=== PATIENT | female | born 1930 | race Caucasian/White ===

== ENCOUNTER 2018-03-12 11:07 | Observation (INO) | payer OTHER, MEDICARE ==
[2018-03-12] MEDS ORDERED: HYDROCODONE/APAP 5/325 MG TAB ONE (12:10)
--- NOTE | 2018-03-12 13:26 | RAD REPORT ---
EXAM DESCRIPTION: RAD - Lumbar Spine 3 Views - 03/12/2018 1:07 pm CLINICAL HISTORY: Back pain, numbness and tingling COMPARISON: None. FINDINGS: A three-view lumbar spine examination was performed. Minimal loss in height seen in both t he superior and inferior endplates of L1. Posterior wall height is preserved. No lytic or blastic com ponent. Remaining lumbar bodies are normal in height. There is a very slight retrolisthesis of L4 on L5. Significant L4-5 disc space narrowing present with degenerative gas in the disc space. There are facet degenerative changes from L3-4 through L5-S1. Disc space narrowing and degenerative change to t he endplates noted at L3-4. No other disc space narrowing. SI joint degenerative changes are present. No pars defects identified. IMPRESSION: Approximately 10-15% compression deformity of the L1 body involving both superior and in ferior endplates. Posterior wall height is preserved. No adequate comparison is available. Acute compression is not excluded. Remaining lumbar bodies are normal in height. Advanced degenerative disc and endplate change at L4-5 with moderate degenerative change at L3-4. Followup MR imaging could be performed to evaluate for active marrow signal in the L1 body.
[2018-03-12] MEDS ORDERED: ALBUTEROL 2.5 MG/3 ML NEB SOL ONE (14:40)
[2018-03-12 15:12] LABS: Urine Blood NEGATIVE (NEG); Urine Glucose NEGATIVE (NEG); Urine Protein 2+ (NEG); Urine Specific Gravity 1.015 (1.005-1.030); Urine pH 8.5 (5.0-7.0)
--- NOTE | 2018-03-12 16:11 | RAD REPORT ---
EXAM DESCRIPTION: Jade Single View03/12/2018 4:01 pm CLINICAL HISTORY: Chest pain/atrial flutter COMPARISON: December 2017 FINDINGS: Mild bilateral interstitial pulmonary opacities are suspected. A small left pleural effus ion may be present. The heart is borderline enlarged IMPRESSION: Mild bilateral interstitial opacities. I suspect most of this is chronic. There may be a mild superimposed interstitial pulmonary edema
--- NOTE | 2018-03-12 16:24 | EKG ---
Test Date: 2018-03-12 Test Time: 15:26:28 Crusher Operator: DAVEY MEASUREMENT RESULTS: Intervals: Rate: 57 WI: QRSD: 90 QT: 450 QTc: 438 [place]: P: 89 WI: QRS: 92 T: 100 INTERPRETIVE STATEMENTS: Atrial flutter with variable AV block Rightward axis ST & T wave abnormality, consider inferior ischemia Abnormal ECG Compared to ECG 12/08/2017 10:23:25 Right-axis deviation now present Possible ischemia now present Sinus rhythm no longer present First degree AV block no longer present ST (T wave) deviation still present Electronically Signed On 03-12-18 16:23:21 CDT by Tono Briggs
--- NOTE | 2018-03-12 16:56 | RAD REPORT ---
EXAM DESCRIPTION: MRI - Lumbar Spine Wo Con - 03/12/2018 4:26 pm CLINICAL HISTORY: Leg numbness and back pain COMPARISON: March 12, 2018 x-ray TECHNIQUE: Sagittal T1, T2 and STIR weighted sequences were obtained. Axial T1 and T2 sequences were obtained through the lumbar disc levels. FINDINGS: A Schmorl's node invagination into the inferior vertebral endplate of L1. Abnormal signal is present within the vertebral endplate. A small bulging disc minimally narrows the thecal sac. Small disc bulge is present at L2-3. Mild ligamentum flavum and facet hypertrophy is seen. Minimal na rrowing of the thecal sac is presence. Minimal narrowing of the neural foramina is noted. A moderate right lateral disc herniation is present at L3-4. The disc is thinned. The neural foramina is narrowed. Disc bulge, ligamentum flavum and facet hypertrophy is seen. The thecal sac measures 9 millimeters. Degenerative signal involves the vertebral endplates. L4-5 disc is thinned. Facet hypertrophy is present. Osteophytes are seen. Moderate narrowing of the n eural foramina bilaterally is present L5-S1 is unremarkable. 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
[2018-03-12 17:16] LABS: Absolute Lymphocytes (CBC) 1.2 K/uL (0.7-4.9); Absolute Monocytes 0.7 K/uL (0.1-1.3); Absolute Neutrophil 4.8 K/uL (1.8-8.0); Basophils % 0.6 % (0-1.3); Hematocrit 40.7 % (36.0-45.0); Lymphocytes % 17.1 % (15.3-44.8); MCH 28.2 pg (27.0-35.0); MCV 84.1 fL (80-100); MPV 9.2 fL (7.6-11.3); Monocytes % 9.6 % (3.3-12.3); RBC Red Blood Cell Count 4.84 M/uL (3.86-4.86)
[2018-03-12 17:20] LABS: Protime INR 0.92
--- NOTE | 2018-03-12 17:26 | ER ---
Nurse's Notes [facility] Name: Batsheva Godoy Age: 88 yrs Sex: Female : 1930 Arrival Date: 03/12/2018 Time: 11:12 Bed 26 Private MD: Diagnosis: Bradycardia, unspecified;Unspecified atrial flutter Presentation: 03/12 11:13 Presenting complaint: Patient states: i have a bad back that is hurting me for a week hj now and its getting worse for the last 3-4 days; the pain moves from the lower abd to my lower back; denies fever and chills; denies nausea and vomiting;. Transition of care: patient was not received from another setting of care. Onset of symptoms was March 12, 2018. Initial Sepsis Screen: Does the patient meet any 2 criteria? No. Patient's initial sepsis screen is negative. Does the patient have a suspected source of infection? No. Patient's initial sepsis screen is negative. Care prior to arrival: None. 11:13 Method Of Arrival: Ambulatory 11:13 Acuity: DEEDEE 3 hj Triage Assessment: 11:15 General: Appears in no apparent distress. uncomfortable, Behavior is calm, cooperative, hj appropriate for age. Pain:. Musculoskeletal: Circulation, motion, and sensation intact. Capillary refill < 3 seconds. Historical: - Allergies: 11:15 No Known Allergies; hj - Home Meds: 11:15 amlodipine oral [Active]; aspirin 81 mg Oral chew 1 tab once daily [Active]; Furosemide hj Oral [Active]; gabapentin Oral [Active]; Hydrochlorothiazide Oral [Active]; Metoprolol Tartrate Oral [Active]; Omeprazole Oral [Active]; - PMHx: 11:15 Hypertension; peripheral artery disease; hj - PSHx: 11:15 by pass surgery; hj - Immunization history:: Adult Immunizations up to date. - Social history:: Smoking status: Patient/guardian denies using tobacco. Screenin:21 Abuse screen: Denies threats or abuse. Denies injuries from another. Nutritional aj1 screening: No deficits noted. Tuberculosis screening: No symptoms or risk factors identified. 20:47 Fall Risk No fall in past 12 months (0 pts). Secondary diagnosis (15 points) impaired aj1 mobility, IV access (20 points). Ambulatory Aid- None/Bed Rest/Nurse Assist (0 pts). Gait- Normal/Bed Rest/Wheelchair (0 pts) Mental Status- Oriented to own ability (0 pts). Total Ardon Fall Scale indicates Low Risk Score (25-44 pts). Fall prevention measures have been instituted. As available Patient and Family Educated on Fall Prevention Program and strategies. Assessment: 11:30 Reassessment: Patient appears in no apparent distress at this time. No changes from aj1 previously documented assessment. Patient and/or family updated on plan of care and expected duration. Pain level reassessed. Patient is alert, oriented x 3, equal unlabored respirations, skin warm/dry/pink. 12:19 General: Appears in no apparent distress. uncomfortable, Behavior is calm, cooperative, aj1 appropriate for age. Pain: Complains of pain in low back area Pain radiates to left leg Pain currently is 10 out of 10 on a pain scale. Quality of pain is described as aching, Is continuous, Alleviated by medications, Aggravated by repositioning. Neuro: Level of Consciousness is awake, alert, obeys commands, Oriented to person, place, time, situation, Speech is normal, Facial symmetry appears normal. Cardiovascular: Patient's skin is warm and dry. Respiratory: Airway is patent Respiratory effort is even, unlabored, Respiratory pattern is regular, symmetrical. GI: No signs and/or symptoms were reported involving the gastrointestinal system. : No signs and/or symptoms were reported regarding the genitourinary system. EENT: No signs and/or symptoms were reported regarding the EENT system. Derm: No signs and/or symptoms reported regarding the dermatologic system. Skin is pink, warm \T\ dry. normal. Musculoskeletal: No signs and/or symptoms reported regarding the musculoskeletal system. Circulation, motion, and sensation intact. 13:07 Reassessment: Patient appears in no apparent distress at this time. No changes from aj1 previously documented assessment. Patient and/or family updated on plan of care and expected duration. Pain level reassessed. Patient is alert, oriented x 3, equal unlabored respirations, skin warm/dry/pink. 14:30 Reassessment: Patient 88% on 2L nc, notified DANA Segura. aj1 14:30 Respiratory: Airway is patent Respiratory effort is even, unlabored, Respiratory aj1 pattern is regular, symmetrical, Breath sounds are clear bilaterally. Denies shortness of breath. 14:44 Reassessment: Patient appears in no apparent distress at this time. No changes from aj1 previously documented assessment. Patient and/or family updated on plan of care and expected duration. Pain level reassessed. Patient is alert, oriented x 3, equal unlabored respirations, skin warm/dry/pink. 15:00 Reassessment: Patient's heart rate appears to drop into the 30's transiently on pulse aj1 ox. Patient placed on cardiac exercise physiologist. Heart rate appears irregular. Notified DANA Segura. 16:00 Reassessment: Patient and/or family updated on plan of care and expected duration. Pain aj1 level reassessed. Cardiovascular: Denies chest pain, diaphoresis, lightheadedness, nausea, palpitations, shortness of breath, syncope, vomiting, Heart tones S1 S2 present Patient's skin is warm and dry. Rhythm is irregular. 16:30 Reassessment: Patient and/or family updated on plan of care and expected duration. Pain aj1 level reassessed. General: Appears in no apparent distress. comfortable, Behavior is calm, cooperative, appropriate for age. Neuro: Level of Consciousness is awake, alert, obeys commands, Oriented to person, place, time, situation, Speech is normal, Facial symmetry appears normal. Cardiovascular: Heart tones S1 S2 present Patient's skin is warm and dry. Rhythm is irregular. Respiratory: Airway is patent Respiratory effort is even, unlabored, Respiratory pattern is regular, symmetrical, Breath sounds are clear bilaterally. GI: No signs and/or symptoms were reported involving the gastrointestinal system. : No signs and/or symptoms were reported regarding the genitourinary system. EENT: No signs and/or symptoms were reported regarding the EENT system. Derm: No signs and/or symptoms reported regarding the dermatologic system. Skin is pink, warm \T\ dry. normal. Musculoskeletal: No signs and/or symptoms reported regarding the musculoskeletal system. Circulation, motion, and sensation intact. 17:48 Reassessment: Patient appears in no apparent distress at this time. No changes from aj1 previously documented assessment. Patient and/or family updated on plan of care and expected duration. Pain level reassessed. Patient is alert, oriented x 3, equal unlabored respirations, skin warm/dry/pink. 18:28 Reassessment: Patient and/or family updated on plan of care and expected duration. Pain aj1 level reassessed. General: Appears in no apparent distress. comfortable, Behavior is calm, cooperative, appropriate for age. Neuro: Level of Consciousness is awake, alert, obeys commands, Oriented to person, place, time, situation, Speech is normal, Facial symmetry appears normal. Cardiovascular: Patient's skin is warm and dry. Rhythm is irregular. Respiratory: Airway is patent Respiratory effort is even, unlabored, Respiratory pattern is regular, symmetrical. GI: No signs and/or symptoms were reported involving the gastrointestinal system. : No signs and/or symptoms were reported regarding the genitourinary system. EENT: No signs and/or symptoms were reported regarding the EENT system. Derm: No signs and/or symptoms reported regarding the dermatologic system. Skin is pink, warm \T\ dry. normal. Musculoskeletal: No signs and/or symptoms reported regarding the musculoskeletal system. Circulation, motion, and sensation intact. 19:30 Reassessment: Patient appears in no apparent distress at this time. No changes from aj1 previously documented assessment. Patient and/or family updated on plan of care and expected duration. Pain level reassessed. Patient is alert, oriented x 3, equal unlabored respirations, skin warm/dry/pink. 20:41 Reassessment: Patient appears in no apparent distress at this time. No changes from aj1 previously documented assessment. Patient and/or family updated on plan of care and expected duration. Pain level reassessed. Patient is alert, oriented x 3, equal unlabored respirations, skin warm/dry/pink. Vital Signs: 11:16 BP 150 / 66; Pulse 65; Resp 18; Temp 97.9(O); Pulse Ox 95% on R/A; Weight 61.69 kg; hj Height 5 ft. 5 in. (165.10 cm); Pain 10/10; 12:19 BP 148 / 61; Pulse 59; Resp 18; Pulse Ox 95% on R/A; aj1 13:08 BP 152 / 69; Pulse 52; Resp 20; Pulse Ox 95% on 2 lpm NC; aj1 14:30 BP 147 / 68; Pulse 52; Resp 20; Pulse Ox 88% on 2 lpm NC; aj1 15:30 BP 154 / 71; Pulse 59; Resp 20; Pulse Ox 93% on 4 lpm NC; aj1 16:30 BP 153 / 67; Pulse 71; Resp 22; Pulse Ox 95% on 4 lpm NC; aj1 17:49 BP 150 / 61; Pulse 64; Resp 20; Pulse Ox 96% on 4 lpm NC; aj1 18:29 BP 161 / 66; Pulse 71; Resp 18; Pulse Ox 95% on 4 lpm NC; aj1 19:30 BP 150 / 57; Pulse 62; Resp 18; Pulse Ox 95% on 4 lpm NC; aj1 11:16 Body Mass Index 22.63 (61.69 kg, 165.10 cm) hj ED Course: 11:12 Patient arrived in ED. hj 11:14 Triage completed. hj 11:15 Arm band placed on left wrist. hj 11:23 Bill Awan PA is PHCP. cp 11:23 Rivera Vega MD is Attending Physician. cp 11:24 Chanel Vaca RN is Primary Nurse. aj1 12:21 Patient has correct armband on for positive identification. Bed in low position. Call aj1 light in reach. Side rails up X 1. 12:21 No provider procedures requiring assistance completed. aj1 12:49 XRAY Lumbar Spine (3 Views) In Process Unspecified. EDMS 13:12 X-ray completed. Patient tolerated procedure well. mh1 15:34 EKG done, by intraoperative neuro tech. reviewed by Bill CORTEZ. at1 16:01 XRAY Chest (1 view) In Process Unspecified. EDMS 16:05 Patient moved to MRI via wheelchair. ka 16:07 MRI Lumbar Spine wo Con In Process Unspecified. EDMS 16:57 MRI completed. Patient tolerated well. Patient moved back from MRI. em2 17:25 Pedro Guerrero DO is Hospitalizing Provider. cp 20:42 Patient admitted, IV remains in place. aj1 20:46 Report given to IRVING Chavez on 4th floor. aj1 Administered Medications: 11:50 CANCELLED (Physician Discretion): UltRAM 25 mg PO once cp 12:15 Drug: HYDROcodone-acetaminophen 5 mg-325 mg 1 tabs Route: PO; aj1 14:43 Follow up: Response: No adverse reaction aj1 14:43 Drug: Albuterol 2.5 mg Route: Inhalation; aj1 Outcome: 17:25 Decision to Hospitalize by Provider. cp 20:49 Admitted to Tele accompanied by tech, via wheelchair, with chart. aj1 20:49 Condition: stable 20:49 Discharge instructions given to patient, Instructed on the need for admit, Demonstrated understanding of instructions. 20:49 Patient left the ED. aj1 Signatures: Dispatcher [employer] EDChanel Valerio, RN RN aj1 Kathy Shelton mh1 Baldo Daniels em2 Judith barksdale, disc pad grinding machine feeder EKG Tat1 Victoriano Christianson RN RN Bill Awan PA PA cp Aguilera, Katelyn ka Corrections: (The following items were deleted from the chart) 11:17 11:16 Temp 97.9F Oral; 61.69 kg; Height 5 ft. 5 in.; BMI: 22.6; Pain 10/10; hj hj 11:18 11:13 Presenting complaint: Patient states: i have a bad back that is hurting me for a hj week now and its getting worse for the last 3-4 days; the pain moves to my back; denies fever and chills; denies nausea and vomiting; hj 11:18 11:16 Pulse 65bpm; Resp 18bpm; Pulse Ox 95% RA; Temp 97.9F Oral; 61.69 kg; Height 5 ft. hj 5 in.; BMI: 22.6; Pain 10/10; hj 17:20 14:30 BP 147 / 68; Pulse 22bpm; Resp 20bpm; Pulse Ox 88% 2 lpm Nasal Cannula; aj1 aj1
--- NOTE | 2018-03-12 17:26 | EDPHYS ---
Physician Documentation [facility] Name: Batsheva Godoy Age: 88 yrs Sex: Female : 1930 Arrival Date: 03/12/2018 Time: 11:12 Bed 26 Private MD: ED Physician Rivera Vega HPI: 03/12 11:51 This 88 yrs old Female presents to ER via Ambulatory with complaints of Back cp Pain, Hip Pain. 11:51 The patient presents with pain that is acute, with no known mechanism of injury. The cp symptoms are located in the low back. Onset: The symptoms/episode began/occurred 1-2 weeks ago. The pain radiates to the left leg. 11:51 The problem was sustained from unknown cause. cp 11:51 Associated signs and symptoms: Pertinent positives: shortness of breath, cp numbness/tingling of left foot, Pertinent negatives: abdominal pain, chest pain, fever, incontinence. Historical: - Allergies: 11:15 No Known Allergies; hj - Home Meds: 11:15 amlodipine oral [Active]; aspirin 81 mg Oral chew 1 tab once daily [Active]; Furosemide hj Oral [Active]; gabapentin Oral [Active]; Hydrochlorothiazide Oral [Active]; Metoprolol Tartrate Oral [Active]; Omeprazole Oral [Active]; - PMHx: 11:15 Hypertension; peripheral artery disease; hj - PSHx: 11:15 by pass surgery; hj - Immunization history:: Adult Immunizations up to date. - Social history:: Smoking status: Patient/guardian denies using tobacco. ROS: 12:00 Constitutional: Negative for body aches, chills, fever, poor PO intake. cp 12:00 Eyes: Negative for injury, pain, redness, and discharge. cp 12:00 ENT: Negative for drainage from ear(s), ear pain, sore throat, difficulty swallowing, difficulty handling secretions. 12:00 Cardiovascular: Negative for chest pain, edema. 12:00 Respiratory: Negative for cough, shortness of breath, wheezing. 12:00 Abdomen/GI: Negative for abdominal pain, nausea, vomiting, and diarrhea, black/tarry stool, rectal bleeding. 12:00 Back: Positive for pain at rest, pain with movement, of the lumbar area and left low back, Negative for injury or acute deformity. 12:00 : Negative for urinary symptoms, flank pain. 12:00 Skin: Negative for cellulitis, diaphoresis, rash. 12:00 Neuro: Positive for numbness, tingling, of the left foot, Negative for altered mental status, headache. 12:00 All other systems are negative. Exam: 12:07 Constitutional: The patient appears in no acute distress, alert, awake, cp non-diaphoretic, non-toxic, well developed, well nourished. 12:07 Head/Face: Normocephalic, atraumatic. cp 12:07 Eyes: Periorbital structures: appear normal, Pupils: equal, round, and reactive to light and accomodation, Extraocular movements: intact throughout, Conjunctiva: normal, no exudate, no injection, Sclera: no appreciated abnormality, Lids and lashes: appear normal, bilaterally. 12:07 ENT: External ear(s): are unremarkable, Ear canal(s): are normal, clear, TM's: bulging, is not appreciated, bilaterally, dullness, bilaterally, erythema, is not appreciated, bilaterally, Nose: is normal, Mouth: Lips: moist, Oral mucosa: pink and intact, moist, Posterior pharynx: is normal, airway is patent, no erythema, no exudate. 12:07 Neck: C-spine: vertebral tenderness, is not appreciated, crepitus, is not appreciated, ROM/movement: is normal, is supple, without pain, no range of motions limitations, no meningismus, no nuchal rigidity, Lymph nodes: no appreciated lymphadenopathy. 12:07 Chest/axilla: Inspection: normal, Palpation: is normal, no crepitus, no tenderness. 12:07 Cardiovascular: Rate: normal, Rhythm: regular, Pulses: Pulses are 2+ in right radial artery and left radial artery. Edema: is not appreciated, JVD: is not appreciated. 12:07 Respiratory: the patient does not display signs of respiratory distress, Respirations: normal, no use of accessory muscles, no retractions, no splinting, no tachypnea, labored breathing, is not present, Breath sounds: are clear throughout, no decreased breath sounds, no stridor, no wheezing. 12:07 Abdomen/GI: Inspection: abdomen appears normal, Bowel sounds: active, all quadrants, Palpation: abdomen is soft and non-tender, in all quadrants, rebound tenderness, is not appreciated, voluntary guarding, is not appreciated, involuntary guarding, is not appreciated. 12:07 Back: pain, that is moderate, of the lumbar area and left low back, ROM is painful, with all movement, Straight leg raises: of both lower extremities does not illicit pain. 12:07 Skin: cellulitis, is not appreciated, no rash present. 12:07 Neuro: Orientation: to person, place \T\ time. Mentation: lucid, able to follow commands, Cerebellar function: is grossly normal, Motor: moves all fours, strength is normal, Sensation: tingling, that is moderate, of the left foot. 15:33 ECG was reviewed by the Attending Physician. cp Vital Signs: 11:16 BP 150 / 66; Pulse 65; Resp 18; Temp 97.9(O); Pulse Ox 95% on R/A; Weight 61.69 kg; hj Height 5 ft. 5 in. (165.10 cm); Pain 10/10; 12:19 BP 148 / 61; Pulse 59; Resp 18; Pulse Ox 95% on R/A; aj1 13:08 BP 152 / 69; Pulse 52; Resp 20; Pulse Ox 95% on 2 lpm NC; aj1 14:30 BP 147 / 68; Pulse 52; Resp 20; Pulse Ox 88% on 2 lpm NC; aj1 15:30 BP 154 / 71; Pulse 59; Resp 20; Pulse Ox 93% on 4 lpm NC; aj1 16:30 BP 153 / 67; Pulse 71; Resp 22; Pulse Ox 95% on 4 lpm NC; aj1 17:49 BP 150 / 61; Pulse 64; Resp 20; Pulse Ox 96% on 4 lpm NC; aj1 18:29 BP 161 / 66; Pulse 71; Resp 18; Pulse Ox 95% on 4 lpm NC; aj1 19:30 BP 150 / 57; Pulse 62; Resp 18; Pulse Ox 95% on 4 lpm NC; aj1 11:16 Body Mass Index 22.63 (61.69 kg, 165.10 cm) MDM: 11:24 Patient medically screened. cp 16:54 Physician consultation: Tono Briggs MD was called at 16:54, was contacted at 16:54, cp regarding consult, patient's condition. 17:10 Data reviewed: vital signs, nurses notes, lab test result(s), EKG, radiologic studies, cp MRI, plain films. 17:10 Test interpretation: by ED physician or midlevel provider: ECG, plain radiologic cp studies. Counseling: I had a detailed discussion with the patient and/or guardian regarding: the historical points, exam findings, and any diagnostic results supporting the discharge/admit diagnosis, lab results, radiology results, the need for further work-up and treatment in the hospital. Physician consultation: Pedro Guerrero DO was contacted at 17:10, due to observed episodes of bradycardia. 03/12 11:48 Order name: Urine Microscopic Only cp 03/12 14:59 Order name: Urine Dipstick--Ancillary (enter results); Complete Time: 15:36 sg 03/12 15:39 Order name: Basic Metabolic Panel cp 03/12 15:39 Order name: BNP cp 03/12 15:39 Order name: CBC with Diff cp 03/12 15:39 Order name: Ckmb cp 03/12 11:50 Order name: XRAY Lumbar Spine (3 Views); Complete Time: 13:35 cp 03/12 13:36 Order name: MRI Lumbar Spine wo Con; Complete Time: 17:05 cp 03/12 15:39 Order name: CPK cp 03/12 15:39 Order name: LFT's cp 03/12 15:39 Order name: Magnesium cp 03/12 15:39 Order name: PT-INR cp 03/12 15:39 Order name: Ptt, Activated cp 03/12 15:39 Order name: Troponin (emerg Dept Use Only) cp 03/12 11:48 Order name: Urine Dipstick-Ancillary (obtain specimen); Complete Time: 17:45 cp 03/12 15:02 Order name: EKG; Complete Time: 15:02 cp 03/12 15:02 Order name: EKG - Nurse/Tech; Complete Time: 15:32 cp 03/12 15:39 Order name: XRAY Chest (1 view); Complete Time: 17:05 cp 03/12 15:39 Order name: Cardiac monitoring; Complete Time: 16:10 cp 03/12 15:39 Order name: IV Saline Lock; Complete Time: 17:50 cp 03/12 15:39 Order name: Labs collected and sent; Complete Time: 16:11 cp 03/12 15:39 Order name: O2 Per Protocol; Complete Time: 16:11 cp 03/12 15:39 Order name: O2 Sat Monitoring; Complete Time: 16:11 03/12 17:13 Order name: Echo w/ Doppler eb EC:33 Rate is 57 beats/min. Rhythm is irregularly irregular. QRS interval is normal. QT cp interval is normal. Interpreted by me. Reviewed by me. Administered Medications: 11:50 CANCELLED (Physician Discretion): UltRAM 25 mg PO once cp 12:15 Drug: HYDROcodone-acetaminophen 5 mg-325 mg 1 tabs Route: PO; aj 14:43 Follow up: Response: No adverse reaction aj 14:43 Drug: Albuterol 2.5 mg Route: Inhalation; aj1 Disposition: 03/12/18 17:25 Hospitalization ordered by Pedro Guerrero for Inpatient Admission. Preliminary diagnosis are Bradycardia, unspecified, Unspecified atrial flutter. - Bed requested for Telemetry/MedSurg (Inpatient). - Status is Inpatient Admission. aj1 - Condition is Stable. - Problem is new. - Symptoms have improved. UTI on Admission? No Addendum: 03/20/2018 19:59 Co-signature as Attending Physician, Rivera Vega MD I agree with the assessment and k dr plan of care. PA/HVAC JOURNEYMAN's history reviewed, patient interviewed, and examined. Signatures: Dispatcher [employer] EDChanel Valerio RN RN aj1 Rivera Vega MD MD [facility] Victoriano Christianson RN RN Bill Awan PA PA Mindy Franklin Corrections: (The following items were deleted from the chart) 03/12 11:50 11:50 UltRAM 25 mg PO once ordered. cp cp 17:37 17:25 Hospitalization Ordered by Pedro Guerrero DO for Inpatient Admission. Preliminary cp diagnosis is Bradycardia, unspecified. Bed requested for Telemetry/MedSurg (Inpatient). Status is Inpatient Admission. Condition is Stable. Problem is new. Symptoms have improved. UTI on Admission? No. cp 17:42 17:37 03/12/2018 17:25 Hospitalization Ordered by Pedro Guerrero DO for Inpatient eb Admission. Preliminary diagnosis is Bradycardia, unspecified; Unspecified atrial flutter. Bed requested for Telemetry/MedSurg (Inpatient). Status is Inpatient Admission. Condition is Stable. Problem is new. Symptoms have improved. UTI on Admission? No. cp 18:03/11 12:00 Constitutional: Negative for body aches, chills, fever, poor PO intake, cp cp 03/12 18:03/11 12:00 Eyes: Negative for injury, pain, redness, and discharge, cp cp 03/12 18:03/11 12:00 ENT: Negative for drainage from ear(s), ear pain, sore throat, difficulty cp swallowing, difficulty handling secretions, cp 03/12 18:03/11 12:00 Cardiovascular: Negative for chest pain, edema, palpitations, cp cp 03/12 18:03/11 12:00 Respiratory: Positive for shortness of breath, Negative for cough, cp wheezing, cp 03/12 18:03/11 12:00 Abdomen/GI: Negative for abdominal pain, nausea, vomiting, and diarrhea, cp black/tarry stool, rectal bleeding, cp 03/12 18:03/11 12:00 Back: Positive for pain at rest, of the lumbar area and left low back, cp cp 03/12 18:03/11 12:00 MS/extremity: Positive for pain, paresthesias, of the left leg, cp cp 03/12 18:03/11 12:00 Skin: Negative for cellulitis, rash, cp cp 03/12 18:03/11 12:00 Neuro: Negative for altered mental status, headache, weakness, cp cp 03/12 18:03/11 12:00 All other systems are negative, cp cp 03/12 18:37 17:42 03/12/2018 17:25 Hospitalization Ordered by Pedro Guerrero DO for Inpatient eb Admission. Preliminary diagnosis is Bradycardia, unspecified; Unspecified atrial flutter. Bed requested for Telemetry/MedSurg (Inpatient). Status is Inpatient Admission. Condition is Stable. Problem is new. Symptoms have improved. UTI on Admission? No. eb 20:49 18:37 03/12/2018 17:25 Hospitalization Ordered by Pedro Guerrero DO for Inpatient aj1 Admission. Preliminary diagnosis is Bradycardia, unspecified; Unspecified atrial flutter. Bed requested for Telemetry/MedSurg (Inpatient). Status is Inpatient Admission. Condition is Stable. Problem is new. Symptoms have improved. UTI on Admission? No. eb
[2018-03-12 17:31] LABS: Potassium 3.5 mEq/L (3.6-5.0)
[2018-03-12 17:37] LABS: Albumin 4.6 g/dL (3.2-5.5); Bilirubin Direct 0.2 mg/dL (0-0.2); Bilirubin Total 1.1 mg/dL (0.3-1.2); Protein, Total 7.2 g/dL (6.0-8.3)
[2018-03-12] MEDS ORDERED: HYDROCODONE/APAP 5/325 MG TAB PO PRN (17:50)
[2018-03-12] MEDS ORDERED: ACETAMINOPHEN 500 MG TAB PO PRN (18:02)
[2018-03-12] MEDS ORDERED: ONDANSETRON 4 MG/2 ML VIAL IV PRN (18:02)
[2018-03-12] MEDS ORDERED: TRAMADOL HCL 50 MG TAB PO PRN (18:02)
[2018-03-12] MEDS ORDERED: HYDROCODONE/APAP 7.5/325 MG TAB PO PRN (18:02)
--- NOTE | 2018-03-12 18:13 | P.HP ---
Certification for Inpatient Patient admitted to: Observation With expected LOS: <2 Midnights Patient will require the following post-hospital care: None Practitioner: I am a practitioner with admitting privileges, knowledge of patient current condition, hospital course, and medical plan of care. Services: Services provided to patient in accordance with Admission requirements found in Title 42 Section 412.3 of the Code of Federal Regulations Patient History Date of Service: 03/12/18 Primary Care Provider: Dr. Botello; Cardiology-Dr. Briggs Reason for admission: Back pain, lower extremity edema History of Present Illness: 88-year-old female presented emergency room with back pain and lower extremity edema. Back pain has been present for several weeks. She rates the pain about a 10/10. Pain is worse today. It is mainly to her lower lumbar region. Patient also has noticed increasing swelling to the lower extremity. Patient had reported some fatigue. No significant chest pain or shortness of breath noted. Patient with history of CHF, hypertension, PVD. In the ER the patient was evaluated. Initial CBC was unremarkable. Sodium 138 , potassium 3.5, troponin unremarkable. BNP slightly elevated. Chest x-ray showed mild pulmonary edema. EKG showed atrial flutter with a rate of about 57. Rate would go was low at has 22-30. Patient now with a rate of 72. MRI of the lumbar spine shows acute Schmorls node in to the foot able end-plate of L1 with surrounding edema, moderate right lateral disc herniation L3-L4. Spondylosis L4 -L5 resulting in moderate bilateral foraminal stenosis. Due to the findings the patient was admitted for observation. ER was able to contact cardiology. Cardiology recommends to hold metoprolol at this time. Patient started on Lovenox. Patient has no history of atrial flutter. Allergies No Known Allergies Allergy (Unverified 02/05/16 23:28) Home medications list reviewed: Yes Home Medications: Aspirin Chewable [Aspirin Chewable*] 81 mg PO DAILY 02/06/16 Clopidogrel Bisulfate [Plavix*] 75 mg PO DAILY 02/06/16 Gabapentin [Neurontin*] 300 mg PO BID 02/06/16 Hydrochlorothiazide 25 mg PO DAILY 02/06/16 Travoprost [Travatan Z] 1 drop EACH EYE BEDTIME 01/07/17 Metoprolol Succinate [Toprol Xl*] 50 mg PO TID 12/08/17 Fluticasone/Salmeterol [Advair 250-50 Diskus] 1 each IH BID #1 blst.w.dev Furosemide [Lasix] 20 mg PO DAILY #30 tab 12/11/17 Potassium Chloride 10 meq PO DAILY #30 tablet.er 12/11/17 Prednisone [Deltasone*] 10 mg PO BID #14 tab 12/11/17 - Past Medical/Surgical History Diabetic: No -: HTN -: PAD -: Glaucoma -: Macular degeneration -: CHF, diastolic dysfunction -: CAD -: Tonsillectomy -: Lower extremity arterial bypass Psychosocial/ Personal History: She is - Family History Family History: Reviewed- Non-Contributory - Family History Mother Notes: Congestive heart failure Father -: Lung disease Brother -: Heart disease Sister -: Cancer - Social History Smoking Status: Never smoker Alcohol use: No CD- Drugs: No Caffeine use: Yes Place of Residence: Home Review of Systems General: Weakness, As per HPI Eyes: Unremarkable ENT: Unremarkable Respiratory: Shortness of Breath, As per HPI Cardiovascular: Light Headedness, As per HPI Gastrointestinal: Unremarkable Genitourinary: Unremarkable Musculoskeletal: Back Pain, As per HPI Integumentary: Unremarkable Neurological: Weakness, As per HPI Lymphatics: Unremarkable Physical Examination - Physical Exam General: Alert, In no apparent distress, Oriented x3, Cooperative HEENT: Atraumatic, Normocephalic, PERRLA, Mucous membr. moist/pink Neck: Supple Respiratory: Crackles/rales (Mild crackles to the bases) Cardiovascular: Irregular heart rate/rhythm (Atrial flutter rate around 70) Gastrointestinal: Normal bowel sounds, Non-distended, No ascites, No tenderness , No masses, No rebound Musculoskeletal: No erythema, No tenderness, No warmth Integumentary: Tenderness/swelling (Mild edema to the left lower extremity.) Neurological: Normal speech, Normal strength at 5/5 x4 extr, Normal tone, Normal affect Lymphatics: No axilla or inguinal lymphadenopathy - Studies Laboratory Data (last 24 hrs) 03/12/18 16:55: PT 10.8, INR 0.92, APTT 28.4 03/12/18 16:55: WBC 7.0, Hgb 13.6, Hct 40.7, Plt Count 187 03/12/18 16:55: B-Natriuretic Peptide 646 H 03/12/18 16:55: Sodium 138, Potassium 3.5 L, BUN 19, Creatinine 0.76, Glucose 100, Magnesium 2.0, Total Bilirubin 1.1, AST 29, ALT 24, Alkaline Phosphatase 74 Assessment and Plan - Problems (Diagnosis) (1) Back pain Current Visit: Yes Status: Acute Plan: MRI findings reviewed. Will provide medication. Will have physical therapy assess ambulation. Patient may require pain management as an outpatient. Qualifiers: Back pain location: low back pain Chronicity: acute Back pain laterality : bilateral Sciatica presence: without sciatica Qualified Code(s): M54.5 - Low back pain (2) Lumbar disc herniation Current Visit: Yes Status: Acute Plan: L3-L4 disc herniation noted. Will continue with pain control. Will have physical therapy assess ambulation. (3) Foraminal stenosis of lumbar region Current Visit: Yes Status: Acute Plan: L4-L5 lumbar region. Will continue with above plan of care. (4) Schmorl's nodes of lumbar region Current Visit: Yes Status: Acute Plan: L1 region noted, will continue with pain control. Patient may require pain management as an outpatient. (5) CHF (congestive heart failure) Onset Date: 12/09/17 Current Visit: No Status: Acute Plan: Mild CHF noted. Will provide Lasix IV. Will continue with a fluid restriction at 1500 cc per day. Qualifiers: Heart failure type: diastolic Heart failure chronicity: acute on chronic Qualified Code(s): I50.33 - Acute on chronic diastolic (congestive) heart failure (6) HTN (hypertension) Onset Date: 12/09/17 Current Visit: No Status: Chronic Plan: Will hold her blood pressure [id number] as requested by Cardiology due to bradycardia Qualifiers: Hypertension type: essential hypertension (7) Bradycardia Current Visit: Yes Status: Acute Plan: Will hold beta-santa therapy. Will monitor blood pressure. (8) Atrial flutter Current Visit: Yes Status: Acute Plan: Will continue with Lovenox. Will hold medication at this time. Cardiology consulted and is aware of the patient. Await further recommendation Discharge Plan: Home Plan to discharge in: 48 Hours - Advance Directives Does patient have a Living Will: No Does patient have a Durable POA for Healthcare: No - Code Status/Comfort Care Code Status Assessed: Yes Time Spent Managing Pts Care (In Minutes): 55
[2018-03-12 21:25] VITALS: BMI 24.0
[2018-03-12] MEDS: ENOXAPARIN 60 MG/0.6 ML SQ SCH (22:28)
[2018-03-13 00:08] LABS: CKMB Creatine Kinase MB 2.4 ng/ml (0.3-4.0)
[2018-03-13 04:45] VITALS: O2SAT 93
[2018-03-13 05:04] LABS: Absolute Monocytes 0.7 K/uL (0.1-1.3); Absolute Neutrophil 4.4 K/uL (1.8-8.0); Basophils % 0.8 % (0-1.3); Eosinophils % 5.2 % (0-4.4); Hematocrit 38.2 % (36.0-45.0); Lymphocytes % 15.5 % (15.3-44.8); MCH 28.1 pg (27.0-35.0); MCV 85.3 fL (80-100); MPV 9.2 fL (7.6-11.3); Monocytes % 11.4 % (3.3-12.3); RBC Red Blood Cell Count 4.47 M/uL (3.86-4.86)
[2018-03-13 05:28] LABS: Magnesium 2.2 mg/dL (1.8-2.5); Potassium 3.9 mEq/L (3.6-5.0)
[2018-03-13] MEDS ORDERED: PANTOPRAZOLE 40MG TABLET PO SCH (06:30)
[2018-03-13] MEDS ORDERED: POTASSIUM 25 MEQ EFFERV TAB PO ONE (07:00)
[2018-03-13 08:21] LABS: CKMB Creatine Kinase MB 1.8 ng/ml (0.3-4.0)
[2018-03-13] MEDS ORDERED: FUROSEMIDE 20 MG/ 2ML VIAL IV SCH (09:00)
[2018-03-13] MEDS: ENOXAPARIN 60 MG/0.6 ML SQ SCH (09:11)
[2018-03-13 10:07] LABS: Urine Appearance CLEAR; Urine Bilirubin NEGATIVE (NEG); Urine Blood NEGATIVE (NEG); Urine Color YELLOW; Urine Glucose NEGATIVE (NEG); Urine Protein 1+ (NEG); Urine Specific Gravity 1.015 (1.005-1.030); Urine Urobilinogen 0.2 mg/dL (0.2-1.0)
[2018-03-13 10:11] LABS: Urine Microscopic Reflex ORDER UMIC
[2018-03-13 10:23] LABS: Urine Bacteria NONE SEEN /HPF (<20); Urine Culture Reflex Order NOT NEEDED; Urine RBC NONE SEEN /HPF (NONE SEEN)
--- NOTE | 2018-03-13 11:44 | PN ---
Date of Progress Note: 03/13/2018 Subjective: The patient is seen and examined, chart reviewed, and case discussed with RN. The patient does report pain in her back. No further chest pain or shortness of breath. Review of Systems: Negative except as above. Medications: Reviewed. Physical Examination: Vital Signs: Temperature 98.1, heart rate 58, blood pressure 162/74, respirations 16, O2 94% on 3 L via nasal cannula. General: Awake, alert, oriented x3, in some mild distress due to pain. Elderly female. CV: S1, S2, irregular. No murmurs. Peripheral pulses weak bilaterally. Respiratory: Moving air well bilaterally. No wheezing. No stridor. Gastrointestinal: Abdomen is soft, nontender, nondistended. Positive bowel sounds. Back: Mild tenderness to palpation in the lumbar spine. Extremities: No clubbing, cyanosis, edema. Neurologic: Nonfocal. Laboratory Data: Sodium 139, potassium 3.9, chloride 105, CO2 29, BUN 27, creatinine 0.95, glucose 85, calcium 9.3, magnesium 2.2. Troponin less than 0.03 x3. Cholesterol of 252, LDL 171, HDL 66, triglycerides 73. WBC 6.5, H and H 12.6 and 38.2, platelets 185. Assessment And Plan: An 88-year-old female with: 1. Acute back pain. MRI reviewed. The patient will need physical therapy and continue with pain management. 2. Lumbar disk herniation at L3-L4. Continue pain medications. 3. Foraminal stenosis of lumbar region, L4-L5. PT evaluation. The patient instructed to watch for symptoms including numbness, tingling, weakness of the legs, loss of bowel or bladder control. 4. Schmorl nodes of lumbar region, L1 region. We will continue with pain control. 5. Congestive heart failure, acute on chronic diastolic dysfunction. We will continue with diuresis. Monitor I's and O's, fluid restriction. 6. Essential hypertension. We will hold beta-santa due to bradycardia. 7. Bradycardia. We will hold beta-blockers. The patient does take beta- blockers through her eyedrops for her glaucoma. 8. Atrial fibrillation and atrial flutter. We will continue with Lovenox. We will follow with Cardiology recommendations. 9. Glaucoma, on beta-santa drops. 10. Gastrointestinal and deep venous thrombosis prophylaxis addressed. SA/MODL Voice ID: [id number] Report ID: [id number] MTDShannan
[2018-03-13 12:16] VITALS: TEMP 98.3
[2018-03-13 13:51] VITALS: BP 160/70
--- NOTE | 2018-03-13 15:59 | CON ---
The patient admitted by Dr. Gloria on 03/12/2018. Reason For Consultation: Bradycardia and atrial flutter. History Of Present Illness: This is an 88-year-old white woman. She is very well known to me from p revious office visits and admissions. She does not really have coronary artery disease. She has had atrial fibrillation and flutter in the past. She has a history of hypertension, peripheral vascular disease. She has had a femoral-popliteal before I believe on the right leg and documented left SFA disease. The patient does not passed out, she fell. Workup in the emergency room showed a compressi on fracture in the vertebral column. The patient was having a lot of pain yesterday and she was note d to be bradycardic in the upper 20s to 30s in atrial flutter. The patient has a beta santa and No rvasc this morning. She is running in the 70s. She is asymptomatic from a cardiovascular standpoint . Even when her heart rate was in the 30s. She denied PND, orthopnea, pedal edema, palpitation, or syncope. Denied any chest pain, shortness of breath, nausea, vomiting, or diaphoresis. Workup so fa r, her chest x-ray showed chronic interstitial fibrosis. Echocardiogram showed mitral regurgitation that is moderate, eccentric, and chronic. Ejection fraction is normal. EKG today shows sinus rhythm with first-degree AV block. Past Medical History: As stated above. Allergies: NONE. Review of Systems: Negative. Social History: Negative. Family History: Negative. Medications: At home include aspirin, Plavix, Norvasc, metoprolol, potassium, Lasix, and Neurontin. Physical Examination: General: The patient is very alert and oriented, very intelligent, requesting to go home. No cardia c issues. Still has some back pain. Physical therapy apparently has been ordered. Vital Signs: Stable. She was in sinus rhythm, first-degree AV block, rate of 78. HEENT: Negative. Neck: Supple. No bruit. Chest: Clear. Cardiac: Revealed a regular rhythm and rate without murmur. No gallops or rubs. Abdomen: Benign. Extremities: Revealed no clubbing, cyanosis, or edema. Diagnostic Data: As stated earlier. Impression And Plan: 1.Paroxysmal atrial fibrillation and flutter with a low heart rate may have been secondary to vagal reaction from the pain and the combination with beta-blockers and Norvasc. 2.Peripheral vascular disease, status post right femoral-popliteal that is stable. 3.Hypertension. 4.Neuropathy. I would personally be very conservative with the patient and I would taper off the be ta-santa. Continue the Norvasc. She can go home and get a 24-hour Holter on her as an outpatient to see if it detecting any more bradycardia with that magnitude. I would personally feel comfortable with her going home and have an outpatient physical therapy. No further cardiac workup at this in tLuis ESPINOSA/ASAD Voice ID: [id number] Report ID: [id number]
[2018-03-13] MEDS ORDERED: TRAVOPROST 0.004% 2.5ML OPTH EACH EYE SCH (21:00)
[2018-03-13] MEDS ORDERED: GABAPENTIN 300 MG CAP PO SCH (21:00)
[2018-03-14] MEDS ORDERED: CLOPIDOGREL 75 MG TABLET PO SCH (09:00)
[2018-03-14] MEDS ORDERED: ASPIRIN 81 MG CHEWABLE TABLET PO SCH (09:00)
[2018-03-14] MEDS ORDERED: hydroCHLOROthiazide 25 MG TAB PO SCH (09:00)
--- NOTE | 2018-03-14 16:18 | P.DS ---
Admission Date: 03/12/18 Discharge Date: 03/13/18 Primary Care Provider: Dr. Botello; Cardiology-Dr. Briggs Disposition: DC HOME/HOME HEALTH CARE Discharge Condition: FAIR Reason for Admission: Back pain, lower extremity edema Consultations: Cardiology Dr. Briggs - Problems (1) Atrial flutter Status: Acute (2) Back pain Status: Acute Qualifiers: Back pain location: low back pain Chronicity: acute Back pain laterality : bilateral Sciatica presence: without sciatica Qualified Code(s): M54.5 - Low back pain (3) Bradycardia Status: Acute (4) CHF (congestive heart failure) Onset Date: 12/09/17 Status: Acute Qualifiers: Heart failure type: diastolic Heart failure chronicity: acute on chronic Qualified Code(s): I50.33 - Acute on chronic diastolic (congestive) heart failure (5) Foraminal stenosis of lumbar region Status: Acute (6) Lumbar disc herniation Status: Acute (7) Obstructive airway disease Status: Acute Qualifiers: Emphysema type: unspecified (8) Schmorl's nodes of lumbar region Status: Acute (9) HTN (hypertension) Onset Date: 12/09/17 Status: Chronic Qualifiers: Hypertension type: essential hypertension Brief History of Present Illness: From H&P 88-year-old female presented emergency room with back pain and lower extremity edema. Back pain has been present for several weeks. She rates the pain about a 10/10. Pain is worse today. It is mainly to her lower lumbar region. Patient also has noticed increasing swelling to the lower extremity. Patient had reported some fatigue. No significant chest pain or shortness of breath noted. Patient with history of CHF, hypertension, PVD. In the ER the patient was evaluated. Initial CBC was unremarkable. Sodium 138 , potassium 3.5, troponin unremarkable. BNP slightly elevated. Chest x-ray showed mild pulmonary edema. EKG showed atrial flutter with a rate of about 57. Rate would go was low at has 22-30. Patient now with a rate of 72. MRI of the lumbar spine shows acute Schmorls node in to the foot able end-plate of L1 with surrounding edema, moderate right lateral disc herniation L3-L4. Spondylosis L4 -L5 resulting in moderate bilateral foraminal stenosis. Due to the findings the patient was admitted for observation. ER was able to contact cardiology. Cardiology recommends to hold metoprolol at this time. Patient started on Lovenox. Patient has no history of atrial flutter. Hospital Course: Patient is an 88-year-old female who came into the hospital for back pain and and fall. Patient was found to be bradycardic and was likely related to her beta-santa. Possible vasovagal reaction. Patient was seen by cardiology. Recommendations were to stop her beta-santa and to continue her aspirin and Plavix. Patient apparently has a history of atrial fibrillation is on aspirin. She was in atrial flutter with slow ventricular rate which improved after holding beta-santa. Patient had MRI of the lumbar spine done which did show abnormalities. Please see HPI for further details. Patient was started on pain medications. Patient was seen by physical therapist. Patient was able to get up and move around. Her pain was controlled. Patient was then cleared for discharge by cardiology. She did not have any further falls heart rate remained stable. Plan is for outpatient Holter monitor and to discontinue the beta-santa Vital Signs/Physical Exam: Temp Pulse Resp BP Pulse Ox 98.3 F 67 16 160/70 H 97 03/13/18 12:00 03/13/18 12:00 03/13/18 12:00 03/13/18 13:50 03/13/18 12:00 Other Physical/Emotional Findings: PLEASE SEE PROGRESS NOTE DICTATED ON DAY OF DISCHARGE FOR PHYSICAL EXAM FINDINGS Laboratory Data at Discharge: WBC 6.5 K/uL (4.3-10.9) 03/13/18 04:43 Hgb 12.6 g/dL (12.0-15.0) 03/13/18 04:43 Hct 38.2 % (36.0-45.0) 03/13/18 04:43 Plt Count 185 K/uL (152-406) 03/13/18 04:43 PT 10.8 SECONDS (9.5-12.5) 03/12/18 16:55 INR 0.92 03/12/18 16:55 APTT 28.4 SECONDS (24.3-36.9) 03/12/18 16:55 Sodium 139 mEq/L (135-145) 03/13/18 04:43 Potassium 3.9 mEq/L (3.6-5.0) 03/13/18 04:43 BUN 27 mg/dL (6-20) H 03/13/18 04:43 Creatinine 0.95 mg/dL (0.44-1.00) 03/13/18 04:43 Glucose 85 mg/dL (65-120) 03/13/18 04:43 Magnesium 2.2 mg/dL (1.8-2.5) 03/13/18 04:43 Total Bilirubin 1.1 mg/dL (0.3-1.2) 03/12/18 16:55 AST 29 IU/L (10-42) 03/12/18 16:55 ALT 24 IU/L (10-60) 03/12/18 16:55 Alkaline Phosphatase 74 IU/L (42-121) 03/12/18 16:55 Troponin I < 0.03 ng/mL (<0.03) 03/13/18 07:37 B-Natriuretic Peptide 646 pg/ml (<=100) H 03/12/18 16:55 Triglycerides 73 mg/dL (35-160) 03/13/18 04:43 Cholesterol 252 mg/dL (<200) H 03/13/18 04:43 HDL Cholesterol 66 mg/dL (29-89) 03/13/18 04:43 Cholesterol/HDL Ratio 3.82 03/13/18 04:43 Home Medications: Aspirin Chewable [Aspirin Chewable*] 81 mg PO DAILY 02/06/16 Clopidogrel Bisulfate [Plavix*] 75 mg PO DAILY 02/06/16 Gabapentin [Neurontin*] 600 mg PO BEDTIME 02/06/16 Hydrochlorothiazide 25 mg PO DAILY 02/06/16 Travoprost [Travatan Z] 1 drop EACH EYE BEDTIME 01/07/17 Potassium Chloride 10 meq PO DAILY #30 tablet.er 12/11/17 Amlodipine [Norvasc*] 10 mg PO DAILY 03/13/18 Furosemide [Lasix*] 20 mg PO DAILY 03/13/18 Hydrocodone 7.5/APAP 325 [[place] 7.5/325 mg*] 1 tab PO Q6H PRN #30 tab 03/13/18 New Medications: Hydrocodone 7.5/APAP 325 [[place] 7.5/325 mg*] 1 tab PO Q6H PRN #30 tab PRN Reason: Pain Moderate To Severe Patient Discharge Instructions: f/up w PCP in 2-3 days. f/up w planning division superintendent in 2 weeks. Return to ER for worsening condition Diet: AHA Activity: Fall precautions Followup: Tono Briggs MD [ACTIVE - CAN ADMIT] - Mario Botello MD [Primary Care Provider] -
--- NOTE | 2018-03-15 08:20 | ECHO ---
HEIGHT: 5 ft 3 in WEIGHT: 135 lb 11.2 oz DATE OF STUDY: 03/12/[address]: Bill Awan PAC 2-DIMENSIONAL: YES M.MODE: YES DOPPLER: YES COLOR FLOW: YES TDS: NO PORTABLE: NO DEFINITY: NO BUBBLE STUDY: NO DIAGNOSIS: BACK PAIN CARDIAC HISTORY: CATHERIZATION: YES SURGERY: NO PROSTHETIC VALVE: NO PACEMAKER: NO MEASUREMENTS (cm) DIASTOLIC (NORMALS) SYSTOLIC (NORMALS) IVSd 1.0 (0.6-1.2) LA Diam 4.2 (1.9-4.0) LVEF 72% LVIDd 4.5 (3.5-5.7) LVIDs 2.6 (2.0-3.5) %FS 41% LVPWd 1.0 (0.6-1.2) Ao Diam 2.5 (2.0-3.7) 2 DIMENSIONAL ASSESSMENT: RIGHT ATRIUM: NORMAL LEFT ATRIUM: DILATED RIGHT VENTRICLE: NORMAL LEFT VENTRICLE: NORMAL TRICUSPID VALVE: NORMAL MITRAL VALVE: MITRAL ANNULAR CALCIFICATION PULMONIC VALVE: NORMAL AORTIC VALVE: SCLEROSIS PERICARDIAL EFFUSION: NONE AORTIC ROOT: NORMAL LEFT VENTRICULAR WALL MOTION: NORMAL DOPPLER/COLOR FLOW: MODERATE MITRAL REGURGITATION, ECCENTRIC. MILD TRICUSPID REGURGITATION. COMMENTS: MODERATE MITRAL REGURGITATION. MILD TRICUSPID REGURGITATION. NORMAL LEFT VENTRICULAR EJECTION FRACTION AND SIZE. MITRAL ANNULAR CALCIFICATION. LEFT ATRIAL ENLARGEMENT. AORTIC SCLEROSIS. TECHNOLOGIST: Orestes BARRIENTOS
== END 2018-03-13 15:23 | disposition home health service (06) ==
LOC: ER 11:07 → INTOOBSV 17:46 → ERHOLD 17:46 → 4TH 19:34
PROVIDERS: ADMIT Family Medicine; ATTEND Family Medicine
DX: I11.0 Hypertensive heart disease with heart failure (principal); I50.33 Acute on chronic diastolic (congestive) heart failure; M51.26 Other intervertebral disc displacement, lumbar region; M48.061 Spinal stenosis, lumbar region without neurogenic claudication; M51.46 Schmorl's nodes, lumbar region; R00.1 Bradycardia, unspecified; I48.0 Paroxysmal atrial fibrillation; H40.9 Unspecified glaucoma; I25.10 Atherosclerotic heart disease of native coronary artery without angina pectoris; I73.9 Peripheral vascular disease, unspecified; Z79.82 Long term (current) use of aspirin; Z95.1 Presence of aortocoronary bypass graft
CPT/HCPCS: 36415; 71045; 72100; 72148; 80048 ×2; 80061; 80076; 81003; 82550 ×3; 82553 ×3; 83735 ×2; 83880; 84484 ×3; 85025 ×2; 85610; 85730; 87077 ×2; 87086; 87088; 87186 ×2; 93005; 93306; 99285; G0378 ×2; J1650 ×2; J1940; 81015

== ENCOUNTER 2018-11-30 06:25 | Day surgery (SDC) | payer OTHER, MEDICARE ==
--- NOTE | 2018-11-26 11:54 | RAD REPORT ---
EXAM DESCRIPTION: RAD - Chest Pa And Lat (2 Views) - 11/26/2018 11:46 am CLINICAL HISTORY: preop Chest pain. COMPARISON: Chest Single View dated 03/12/2018; Chest Pa And Lat (2 Views) dated 01/05/2018; Chest Sin gle View dated 12/08/2017; Chest Pa And Lat (2 Views) dated 06/24/2017 FINDINGS: The lungs are emphysematous with small benign calcified granuloma in the right lower lobe. The heart is mildly enlarged in size. No displaced fractures. Aortic atherosclerosis. IMPRESSION: Prominent COPD.
[2018-11-26 12:12] LABS: Protime INR 0.95
[2018-11-26 12:20] LABS: Potassium 3.6 mmol/L (3.5-5.1)
[2018-11-26 12:21] LABS: Absolute Lymphocytes (CBC) 1.2 K/uL (0.7-4.9); Absolute Monocytes 0.7 K/uL (0.1-1.3); Absolute Neutrophil 5.5 K/uL (1.8-8.0); Basophils % 0.7 % (0-1.3); Hematocrit 44.6 % (36.0-45.0); Lymphocytes % 16.4 % (15.3-44.8); MPV 9.7 fL (7.6-11.3); Monocytes % 8.6 % (3.3-12.3); RBC Red Blood Cell Count 5.25 M/uL (3.86-4.86)
[2018-11-30] MEDS ORDERED: HEPA 1000U/500MLS 2,000 UNIT/1,000 ML BAG IV ONE (06:47)
[2018-11-30] MEDS ORDERED: LIDOCAINE 1% MPF 5 ML VIAL ONE (06:48)
[2018-11-30] MEDS ORDERED: NA CHLORIDE 0.9% 500 ML ONE (07:07)
[2018-11-30] MEDS ORDERED: MIDAZOLAM HCL 2 MG/2 ML INJ ONE (07:42)
[2018-11-30] MEDS ORDERED: FENTANYL CITR 100 MCG/2 ML ONE (07:43)
[2018-11-30 10:19] VITALS: BP 147/50; O2SAT 96
[2018-11-30 10:21] VITALS: TEMP 97.4
--- NOTE | 2018-11-30 18:41 | OP ---
Surgeon: Tono Briggs MD Awnings Mechanic: Ajith Ricketts. Total conscious sedation was 30 minutes. Admitted to my service as an outpatient on 11/30/2018. Reason for admission was peripheral arterial disease. Procedure: Abdominal angiogram with run-off. Indication: Peripheral arterial disease, severe claudication, and right foot wound. Procedure In Detail: Ms. Godoy is status post left femoral-popliteal in the past for severe PAD. She was brought to the laboratory associate, given 2 mg of Versed for IV sedation, prepped and draped in the rou vandana sterile fashion. Left groin approach was used. A 6-Bahamian sheath was introduced. Angio-Seal w as used to close the case. A straight 6-Bahamian pigtail catheter was advanced above the renals. Abdo diana angiogram showed normal renals, normal distal aorta, diffuse plaquing in the common iliac, comp letely occluded left SFA with a patent left femoral-popliteal, completely occluded right SFA at mid l evel with reconstitution at the popliteal. Complications: None. Blood Loss: 5 cc. Postoperative Diagnosis: Severe peripheral arterial disease. Plan: Right femoral-popliteal. NB/MODL Voice ID: [id number] Report ID: [id number]
== END 2018-11-30 10:10 | disposition home health service (06) ==
LOC: CCL 06:25
DX: I70.213 Atherosclerosis of native arteries of extremities with intermittent claudication, bilateral legs (principal); I70.92 Chronic total occlusion of artery of the extremities; M86.171 Other acute osteomyelitis, right ankle and foot; I50.32 Chronic diastolic (congestive) heart failure; I11.0 Hypertensive heart disease with heart failure; E78.6 Lipoprotein deficiency; Z82.49 Family history of ischemic heart disease and other diseases of the circulatory system
CPT/HCPCS: 36415; 71046; 75630; 80048; 85025; 85610; 85730; C1760; C1893; J2250; J3010; 36200

== ENCOUNTER 2019-02-13 13:04 | Inpatient (IN) | payer OTHER, MEDICARE ==
--- OUTSIDE RECORDS SUMMARY | 2019-02-13 13:07 | XMS REPORT | Clinical Summary ---
:1930 Author Organization [facility] Address [address] [place] [address] Care Team Providers Name Role Phone Mario Botello Primary Care Provider Allergies No Known Allergies Medications Medication Sig Dispensed Refills Start Date End Date Status hydroCHLOROthiazide Take 25 mg by 0 Active (HYDRODIURIL) 25 MG tablet mouth daily. gabapentin (NEURONTIN) 300 Take 300 mg 0 Active MG capsule by mouth 2 (two) times daily. amLODIPine (NORVASC) 10 MG Take 10 mg by 0 Active tablet mouth daily. clopidogrel (PLAVIX) 75 mg Take 75 mg by 0 Active tablet mouth daily. METOPROLOL SUCCINATE Take by mouth 0 Active ORALIndications: unknown daily. strength aspirin 81 MG EC tablet Take 81 mg by 0 Active mouth daily. 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 bypass surgery Overview: both legs Hypertension CHF (congestive heart failure) Hyperlipidemia Encounters Date Type Specialty Care Team Description 12/02/2018 Office Visit Cardiology Maxi Hickey Non-healing ulcer of lower extremity, right, with unspecified severity (HCC); MD Rae S/P femoral-popliteal bypass surgery; Essential hypertension; Chronic diastolic congestive heart failure (HCC); Hyperlipidemia, unspecified hyperlipidemia type after 02/12/2018 Family History Medical History Relation Name Comments Heart failure Mother Relation Name Status Comments Mother Alive Social History Tobacco Use Types Packs/Day Years Used Date Never Smoker Smokeless Tobacco: Never Used Alcohol Use Drinks/Week oz/Week Comments No Alcohol Habits Answer Date Recorded How often do you have a drink containing alcohol? Never 12/09/2018 How many drinks containing alcohol do you have on a typical Not asked day when you are drinking? How often do you have six or more drinks on one occasion? Not asked Sex Assigned at Date Recorded Not on file Job Start Date Occupation Industry Not on file Not on file Not on file Travel History Travel Start Travel End No recent travel history available. 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 Pulse 82 12/02/2018 10:30 AM THREAD TOOL GRINDER SET UP OPERATOR Temperature 37 C (98.6 F) 12/02/2018 10:30 AM THREAD TOOL GRINDER SET UP OPERATOR Respiratory Rate 12 12/02/2018 10:30 AM THREAD TOOL GRINDER SET UP OPERATOR Oxygen Saturation 98% 12/02/2018 10:30 AM THREAD TOOL GRINDER SET UP OPERATOR Inhaled Oxygen Concentration - - Weight 61.7 kg (136 lb) 12/02/2018 10:30 AM THREAD TOOL GRINDER SET UP OPERATOR Height 165.1 cm (5' 5") 12/02/2018 10:30 AM THREAD TOOL GRINDER SET UP OPERATOR Body Mass Index 22.63 12/02/2018 10:30 AM THREAD TOOL GRINDER SET UP OPERATOR Plan of Treatment Not on file Results Not on fileafter 02/12/2018 Insurance Payer Benefit Plan / Group Subscriber ID Type Phone Address MEDICARE MEDICARE A B xxxxxxxxxxx Medicare MCR SUPPLEMENT/INDIVIDUAL AARP/[facility] xxxxxxxxxxx [facility]
[2019-02-13] MEDS ORDERED: LEVALBUTEROL 1.25 MG/3 ML NEB ONE (13:31)
[2019-02-13] MEDS ORDERED: NA CHLORIDE 0.9% 500 ML ONE (13:31)
[2019-02-13 13:49] LABS: Absolute Monocytes 1.5 K/uL (0.1-1.3); Absolute Neutrophil 9.2 K/uL (1.8-8.0); Basophils % 0.8 % (0-1.3); Eosinophils % 0.7 % (0-4.4); Hematocrit 40.3 % (36.0-45.0); Lymphocytes % 8.5 % (15.3-44.8); MPV 9.8 fL (7.6-11.3); Monocytes % 12.7 % (3.3-12.3); RBC Red Blood Cell Count 4.75 M/uL (3.86-4.86)
[2019-02-13 14:02] LABS: Potassium 3.7 mmol/L (3.5-5.1)
--- NOTE | 2019-02-13 14:02 | RAD REPORT ---
EXAM DESCRIPTION: RAD - Chest Single View - 02/13/2019 1:27 pm CLINICAL HISTORY: Cough, dyspnea COMPARISON: November 2018 TECHNIQUE: AP portable chest image was obtained 1324 hours . FINDINGS: Lungs are fibrotic as a baseline with accentuation due to shallow inspiration. Focal left base parenchymal opacification is present with pleural effusion. Left hemidiaphragm and left heart colleen rder are partially obscured. Small right pleural effusion is present. Overall interstitial opacificat ion has increased from comparison. Heart size is not substantially different from comparison. Vascula r engorgement. No pneumothorax. No acute bony abnormality seen. No acute aortic findings suspected. IMPRESSION: CHF/volume overload pattern is evident superimposed on baseline interstitial lung diseas e. Focal opacification in the left base could be a superimposed infiltrate.
[2019-02-13] MEDS ORDERED: AZITHROMYCIN 500 MG/250 ML BAG IV SCH (14:15)
[2019-02-13] MEDS ORDERED: CEFTRIAXONE/SWI 1gm 1 GM/10 ML SYR ONE (14:20)
--- NOTE | 2019-02-13 15:46 | EDPHYS ---
Physician Documentation [facility] Name: Batsheva Godoy Age: 88 yrs Sex: Female : 1930 Arrival Date: 02/13/2019 Time: 13:06 Bed 20 Private MD: Mario Botello E ED Physician Demetrius Bear HPI: 02/13 13:27 This 88 yrs old Female presents to ER via Ambulatory with complaints of rn Breathing Difficulty. 13:27 The patient has shortness of breath at rest. Onset: The symptoms/episode began/occurred rn 3 day(s) ago. Duration: The symptoms are continuous. The patient's shortness of breath is aggravated by exertion, is alleviated by nothing. Severity of symptoms: At their worst the symptoms were moderate in the emergency department the symptoms are unchanged. The patient has experienced similar episodes in the past. The patient has not recently seen a physician. Historical: - Allergies: 13:18 No Known Allergies; la1 - Home Meds: 15:28 Omeprazole Oral [Active]; Metoprolol Tartrate Oral [Active]; amlodipine oral [Active]; tw2 Furosemide Oral [Active]; aspirin 81 mg Oral chew 1 tab once daily [Active]; gabapentin Oral [Active]; Hydrochlorothiazide Oral [Active]; - PMHx: 13:18 Hypertension; peripheral artery disease; bradycardia; la1 - PSHx: 15:28 bypass surgery; tw2 - Immunization history:: Adult Immunizations up to date. - Social history:: Smoking status: Patient/guardian denies using tobacco. - Ebola Screening: : No symptoms or risks identified at this time. - Family history:: not pertinent. - Hospitalizations: : No recent hospitalization is reported. ROS: 13:27 Constitutional: Negative for fever, chills, and weight loss, Eyes: Negative for injury, rn pain, redness, and discharge, ENT: dry MM, no stridor Cardiovascular: Negative for chest pain, palpitations, and edema, Respiratory: + sob and productive cough Abdomen/GI: Negative for abdominal pain, nausea, vomiting, diarrhea, and constipation, MS/Extremity: Negative for injury and deformity, Skin: Negative for injury, rash, and discoloration, Neuro: + generalized weakness Exam: 13:27 Constitutional: This is a well developed, well nourished patient who is awake, alert, rn and in no acute distress. Head/Face: Normocephalic, atraumatic. Eyes: Pupils equal round and reactive to light, extra-ocular motions intact. Lids and lashes normal. Conjunctiva and sclera are non-icteric and not injected. Cornea within normal limits. Periorbital areas with no swelling, redness, or edema. ENT: dry MM Cardiovascular: Regular rate, No pulse deficits. Respiratory: + coarse bilateral breath sounds, no wheezing, + mild tachypnea, 4 word sentences Abdomen/GI: soft, non-tender MS/ Extremity: Pulses equal, no cyanosis. Neurovascular intact. Full, normal range of motion. Equal circumference. Neuro: Awake and alert, GCS 15, oriented to person, place, time, and situation. Cranial nerves II-XII grossly intact. Motor strength 5/5 in all extremities. Sensory grossly intact. Cerebellar exam normal. Vital Signs: 13:16 BP 164 / 64; Pulse 71; Resp 20; Temp 99.4(TE); Pulse Ox 79% on R/A; Weight 60.33 kg; la1 Height 5 ft. 5 in. (165.10 cm); Pain 0/10; 13:16 Pulse Ox 88% on 4 lpm NC; la1 13:54 BP 145 / 44; Pulse 69; Resp 17; Pulse Ox 91% on Venturi mask; tw2 14:57 BP 131 / 49; Pulse 67; Resp 17; Pulse Ox 92% on Venturi mask; tw2 15:49 BP 140 / 49; Pulse 66; Resp 16; Pulse Ox 91% on BiPAP; tw2 16:49 BP 122 / 43; Pulse 63; Resp 17; Pulse Ox 92% on BiPAP; tw2 17:30 BP 141 / 52; Pulse 63; Resp 17; Pulse Ox 92% on BiPAP; tw2 18:16 BP 119 / 41; Pulse 65; Resp 16; Pulse Ox 92% on BiPAP; tw2 19:58 BP 134 / 56; Pulse 64; Resp 23; Temp 100.1(TE); Pulse Ox 94% on 40% BiPAP; Pain 0/10; ed1 13:16 Body Mass Index 22.13 (60.33 kg, 165.10 cm) la1 14:57 disposable pulse ox used for more accurate reading at this time. tw2 15:49 14, rate 12, 40% tw2 19:58 BiPap settings 29/05; rate of 12 ed1 MDM: 13:10 Patient medically screened. rn 15:39 Differential diagnosis: Bronchitis CHF exacerbation, Chronic Obstructive Pulmonary rn Disease Myocardial Infarction Pneumothorax pulmonary edema, reactive airway disease, Sepsis. Data reviewed: vital signs, nurses notes, lab test result(s), radiologic studies, plain films, and as a result, I will admit patient. Counseling: I had a detailed discussion with the patient and/or guardian regarding: the historical points, exam findings, and any diagnostic results supporting the discharge/admit diagnosis, lab results, radiology results, the need for further work-up and treatment in the hospital. Response to treatment: the patient's symptoms have mildly improved after treatment, and as a result, I will admit patient. ED course: Likely baseline pulmonary edema with superimposed infiltrate given fever/new cough. Will admit to Dr. Aguero. Had to place on bipap for hypoxemia and work of breathing.. 02/13 13:18 Order name: CBC with Diff; Complete Time: 14:03 rn 02/13 13:18 Order name: Basic Metabolic Panel; Complete Time: 14:49 rn 02/13 13:18 Order name: Blood Culture Adult (2) rn 02/13 13:18 Order name: Procalcitonin; Complete Time: 14:49 rn 02/13 13:18 Order name: Lactate; Complete Time: 14:49 rn 02/13 13:18 Order name: Flu; Complete Time: 14:49 rn 02/13 13:18 Order name: XRAY Chest (1 view); Complete Time: 14:03 rn 02/13 14:05 Order name: BNP eb 02/13 14:05 Order name: NT PRO-BNP; Complete Time: 14:49 EDMS 02/13 14:48 Order name: Sputum Culture iw 02/13 15:22 Order name: BIPAP tw2 02/13 13:18 Order name: IV Start; Complete Time: 13:51 rn Administered Medications: 13:25 Drug: Xopenex 1.25 mg Route: Inhalation; tw2 13:33 Drug: NS 0.9% 500 ml Route: IV; Rate: bolus; Site: right antecubital; tw2 14:31 Follow up: Response: No adverse reaction; IV Status: Completed infusion; IV Intake: tw2 500ml 14:06 Not Given (available IVP only from pharmacy): Rocephin - (cefTRIAXone) 1 grams IVPB tw2 once over 30 mins; (mix in 50 mL NS) 14:25 Drug: Rocephin 1 grams Route: IV; Rate: bolus; Site: right antecubital; tw2 14:31 Follow up: Response: No adverse reaction; IV Status: Completed infusion tw2 14:31 Drug: AZITHromycin 500 mg Route: IVPB; Infused Over: 1 hrs; Site: right antecubital; tw2 15:34 Follow up: Response: No adverse reaction; IV Status: Completed infusion tw2 Disposition: 15:39 Critical Care:. rn Disposition: 02/13/19 15:46 Hospitalization ordered by Shamar Aguero for Inpatient Admission. Preliminary diagnosis are Pulmonary edema, Pneumonia, Hypoxemia. - Bed requested for Intensive Care Unit. - Status is Inpatient Admission. la1 - Condition is Stable. - Problem is new. - Symptoms have improved. UTI on Admission? No Critical care time excluding procedures: 15:39 Critical care time: Bedside Care: 25 minutes, Consultation: 5 minutes. Total time: 30 rn minutes Signatures: Dispatcher [employer] EDMS Demetrius Bear MD MD rn Attema, Lee, RN RN la1 Latia Kline RN RN tw2 Mindy Franklin Corrections: (The following items were deleted from the chart) 13:29 13:27 Constitutional: This is a well developed, well nourished patient who is awake, rn alert, and in no acute distress. Head/Face: Normocephalic, atraumatic. Eyes: Pupils equal round and reactive to light, extra-ocular motions intact. Lids and lashes normal. Conjunctiva and sclera are non-icteric and not injected. Cornea within normal limits. Periorbital areas with no swelling, redness, or edema. ENT: dry MM rn 15:58 15:46 Hospitalization Ordered by Shamar Aguero MD for Inpatient Admission. Preliminary eb diagnosis is Pulmonary edema; Pneumonia; Hypoxemia. Bed requested for Intensive Care Unit. Status is Inpatient Admission. Condition is Stable. Problem is new. Symptoms have improved. UTI on Admission? No. rn 18:50 15:58 02/13/2019 15:46 Hospitalization Ordered by Shamar Aguero MD for Inpatient eb Admission. Preliminary diagnosis is Pulmonary edema; Pneumonia; Hypoxemia. Bed requested for Intensive Care Unit. Status is Inpatient Admission. Condition is Stable. Problem is new. Symptoms have improved. UTI on Admission? No. eb 21:30 18:50 02/13/2019 15:46 Hospitalization Ordered by Shamar Aguero MD for Inpatient la1 Admission. Preliminary diagnosis is Pulmonary edema; Pneumonia; Hypoxemia. Bed requested for Intensive Care Unit. Status is Inpatient Admission. Condition is Stable. Problem is new. Symptoms have improved. UTI on Admission? No. eb
--- NOTE | 2019-02-13 15:46 | ER ---
Nurse's Notes [facility] Name: Batsheva Godoy Age: 88 yrs Sex: Female : 1930 Arrival Date: 02/13/2019 Time: 13:06 Bed 20 Private MD: Mario Botello E Diagnosis: Pulmonary edema;Pneumonia;Hypoxemia Presentation: 02/13 13:14 Presenting complaint: Patient states: I was at home feeling bad and we checked my 02 la1 level, it was 77%. I have been feeling SOB for the last couple days. Transition of care: patient was not received from another setting of care. Onset of symptoms was February 13, 2019. Risk Assessment: Do you want to hurt yourself or someone else? Patient reports no desire to harm self or others. Initial Sepsis Screen: Does the patient meet any 2 criteria?. Care prior to arrival: None. 13:14 Method Of Arrival: Ambulatory la1 13:14 Acuity: DEEDEE 2 la1 13:56 Initial Sepsis Screen: Does the patient have a suspected source of infection? Yes: tw2 Productive cough/pneumonia. Triage Assessment: 13:10 General: Appears in no apparent distress. Respiratory: Onset: The symptoms/episode tw2 began/occurred this morning, the patient has moderate shortness of breath. Respiratory: Reports shortness of breath at rest on exertion cough that is. Historical: - Allergies: 13:18 No Known Allergies; la1 - Home Meds: 15:28 Omeprazole Oral [Active]; Metoprolol Tartrate Oral [Active]; amlodipine oral [Active]; tw2 Furosemide Oral [Active]; aspirin 81 mg Oral chew 1 tab once daily [Active]; gabapentin Oral [Active]; Hydrochlorothiazide Oral [Active]; - PMHx: 13:18 Hypertension; peripheral artery disease; bradycardia; la1 - PSHx: 15:28 bypass surgery; tw2 - Immunization history:: Adult Immunizations up to date. - Social history:: Smoking status: Patient/guardian denies using tobacco. - Ebola Screening: : No symptoms or risks identified at this time. - Family history:: not pertinent. - Hospitalizations: : No recent hospitalization is reported. Screenin:56 Abuse screen: Denies threats or abuse. Nutritional screening: No deficits noted. tw2 Tuberculosis screening: No symptoms or risk factors identified. Fall Risk Secondary diagnosis (15 points) impaired mobility. Assessment: 13:30 General: Appears in no apparent distress. slender, well groomed, Behavior is calm, tw2 cooperative, appropriate for age. Pain: Denies pain. Neuro: Level of Consciousness is awake, alert, obeys commands, Oriented to person, place, time, situation. Cardiovascular: Heart tones S1 S2 Capillary refill Rhythm is regular. Respiratory: Reports shortness of breath at rest on exertion Airway is patent Respiratory effort is even, labored, Respiratory pattern is regular, symmetrical, Breath sounds with wheezes bilaterally. GI: No signs and/or symptoms were reported involving the gastrointestinal system. Abdomen is flat, Bowel sounds present X 4 quads. : No signs and/or symptoms were reported regarding the genitourinary system. EENT: No signs and/or symptoms were reported regarding the EENT system. Derm: No signs and/or symptoms reported regarding the dermatologic system. Musculoskeletal: Capillary refill < 3 seconds, Range of motion: intact in all extremities. 14:30 Reassessment: Patient appears in no apparent distress at this time. Patient and/or tw2 family updated on plan of care and expected duration. Pain level reassessed. Patient states feeling better. Patient states symptoms have improved. Reassessment: Patient appears in no apparent distress at this time. Patient and/or family updated on plan of care and expected duration. Pain level reassessed. Patient states feeling better. 15:29 Reassessment: respiratory at bedside at this time placing pt on bipap. tw2 15:48 Reassessment: Patient appears in no apparent distress at this time. Patient and/or tw2 family updated on plan of care and expected duration. Pain level reassessed. Patient states symptoms have improved. 17:00 Reassessment: pt requesting to go to the restroom, bipap placed on standby, pt with tw2 standby assist to bathroom, call light pulled shortly after, pt dyspnic at this time, o2 sat at 78%, pt placed on bipap immediately, IRVING Orozco at bedside to assist, pt returned to 92 % shortly therafter, provider notified. 18:00 Reassessment: Patient appears in no apparent distress at this time. Patient and/or tw2 family updated on plan of care and expected duration. Pain level reassessed. 19:58 Reassessment: Patient appears in no apparent distress at this time. Patient and/or ed1 family updated on plan of care and expected duration. Pain level reassessed. Patient is alert, oriented x 3, equal unlabored respirations, skin warm/dry/pink. Patient denies pain at this time. Respiratory: Airway is patent Respiratory effort is even, unlabored, Respiratory pattern is regular, symmetrical, Pt on BiPap. Vital Signs: 13:16 BP 164 / 64; Pulse 71; Resp 20; Temp 99.4(TE); Pulse Ox 79% on R/A; Weight 60.33 kg; la1 Height 5 ft. 5 in. (165.10 cm); Pain 0/10; 13:16 Pulse Ox 88% on 4 lpm NC; la1 13:54 BP 145 / 44; Pulse 69; Resp 17; Pulse Ox 91% on Venturi mask; tw2 14:57 BP 131 / 49; Pulse 67; Resp 17; Pulse Ox 92% on Venturi mask; tw2 15:49 BP 140 / 49; Pulse 66; Resp 16; Pulse Ox 91% on BiPAP; tw2 16:49 BP 122 / 43; Pulse 63; Resp 17; Pulse Ox 92% on BiPAP; tw2 17:30 BP 141 / 52; Pulse 63; Resp 17; Pulse Ox 92% on BiPAP; tw2 18:16 BP 119 / 41; Pulse 65; Resp 16; Pulse Ox 92% on BiPAP; tw2 19:58 BP 134 / 56; Pulse 64; Resp 23; Temp 100.1(TE); Pulse Ox 94% on 40% BiPAP; Pain 0/10; ed1 13:16 Body Mass Index 22.13 (60.33 kg, 165.10 cm) la1 14:57 disposable pulse ox used for more accurate reading at this time. tw2 15:49 14/7, rate 12, 40% tw2 19:58 BiPap settings 14/7; rate of 12 ed1 ED Course: 13:06 Patient arrived in ED. mr 13:07 Mario Botello MD is Private Physician. mr 13:08 Bed in low position. Call light in reach. Adult w/ patient. detective narcotics and vice on. Pulse tw2 ox on. NIBP on. respiratory paged for venti mask at this time. Warm blanket given. 13:10 Latia Kline RN is Primary Nurse. tw2 13:10 Demetrius Bear MD is Attending Physician. rn 13:15 Triage completed. la1 13:19 Arm band placed on left wrist. la1 13:27 XRAY Chest (1 view) In Process Unspecified. EDMS 15:45 Shamar Aguero MD is Hospitalizing Provider. rn 19:00 Report given to irving amador. tw2 19:16 Primary Nurse role handed off by Latia Kline RN ed1 19:16 Lillian Lujan RN is Primary Nurse. ed1 20:09 Awaiting: To call report to ICU. Spoke with Marzena, she stated "We have to move a ed1 patient out first and she hasn't even called report yet. It will be about 30 minutes or so.". 20:55 Awaiting: To call report to ICU. Spoke with Marzena, she stated "She just got her ed1 patient out. She will call you.". 21:42 No provider procedures requiring assistance completed. Patient admitted, IV remains in ed1 place. intact, No redness/swelling at site. Administered Medications: 13:25 Drug: Xopenex 1.25 mg Route: Inhalation; tw2 13:33 Drug: NS 0.9% 500 ml Route: IV; Rate: bolus; Site: right antecubital; tw2 14:31 Follow up: Response: No adverse reaction; IV Status: Completed infusion; IV Intake: tw2 500ml 14:06 Not Given (available IVP only from pharmacy): Rocephin - (cefTRIAXone) 1 grams IVPB tw2 once over 30 mins; (mix in 50 mL NS) 14:25 Drug: Rocephin 1 grams Route: IV; Rate: bolus; Site: right antecubital; tw2 14:31 Follow up: Response: No adverse reaction; IV Status: Completed infusion tw2 14:31 Drug: AZITHromycin 500 mg Route: IVPB; Infused Over: 1 hrs; Site: right antecubital; tw2 15:34 Follow up: Response: No adverse reaction; IV Status: Completed infusion tw2 Intake: 14:31 IV: 500ml; Total: 500ml. tw2 Outcome: 15:46 Decision to Hospitalize by Provider. rn 21:28 Admitted to ICU accompanied by nurse, accompanied by tech, via stretcher, room ICU 3, ed1 with oxygen, on monitor, with chart, Report called to IRVING Epps 21:28 Condition: stable 21:28 Discharge instructions given to patient, Instructed on the need for admit, Demonstrated understanding of instructions. 21:30 Patient left the ED. la1 Signatures: Dispatcher [employer] Cathy CuelloDemetrius MD MD rn Riggs, Erika, RN RN ed1 Yousif Nam RN RN la1 Latia Kline RN RN tw2 Corrections: (The following items were deleted from the chart) 13:56 13:55 Initial Sepsis Screen: Does the patient meet any 2 criteria? RR > 20 per min. No. tw2 Patient's initial sepsis screen is negative. Does the patient have a suspected source of infection? Yes: Productive cough/pneumonia If YES to both, name of provider notified: Latia Kline RN tw2 15:00 14:57 BP 131 / 49; Pulse 67bpm; Resp 17bpm; Pulse Ox 84% Venturi mask\\E\\ provider tw2 notified.; tw2 21:43 20:55 Awaiting: To call report to ICE. Spoke with Marzena, she stated "She just got her ed1 patient out. She will call you." ed1
--- NOTE | 2019-02-13 19:30 | P.HP ---
Certification for Inpatient Patient admitted to: Inpatient With expected LOS: >2 Midnights Practitioner: I am a practitioner with admitting privileges, knowledge of patient current condition, hospital course, and medical plan of care. Services: Services provided to patient in accordance with Admission requirements found in Title 42 Section 412.3 of the Code of Federal Regulations Patient History Date of Service: 02/13/19 Reason for admission: Shortness of breath History of Present Illness: This is a 80-year-old female with history of CHF, hypertension, bradycardia admitted for shortness of breath. Per patient, for the past week she has been having intermittent shortness of breath that has been progressively worsening. This morning/late last night and she could not catch her breath. She decided to come to the ER. She denies any fever, chills, headaches, vision changes, chest pain, GI or complaints. She does complain about having a cough that has been also progressively worsening. She denies any lower extremity edema. In the ER, she was found to be saturating in 78-79% on room air, which did not improve with nasal cannula. She was placed on BiPAP, improved her oxygen saturation to 92%. She did take the for BiPAP to go to the bathroom, and again decided to 70s. Responded well to being placed on BiPAP. Her labs were remarkable for white blood cell count of 11.9. Her chest x-ray with evidence of CHF and volume overload. She was given azithromycin and Rocephin to cover for suspected pneumonia. At the time of my exam, patient was alert oriented x3, breathing comfortably on BiPAP, satting 92% while on the BiPAP. She remained hemodynamically stable. She was admitted for further care/evaluation. Allergies No Known Allergies Allergy (Verified 11/26/18 10:27) Home medications list reviewed: Yes Home Medications: Aspirin Chewable [Aspirin Chewable*] 81 mg PO DAILY 02/06/16 Clopidogrel Bisulfate [Plavix*] 75 mg PO DAILY 02/06/16 Gabapentin [Neurontin*] 600 mg PO BEDTIME 02/06/16 hydroCHLOROthiazide [Hydrochlorothiazide] 25 mg PO DAILY 02/06/16 Travoprost [Travatan Z] 1 drop EACH EYE BEDTIME 01/07/17 Potassium Chloride 10 meq PO DAILY #30 tablet.er 12/11/17 Amlodipine [Norvasc*] 10 mg PO DAILY 03/13/18 Furosemide [Lasix*] 20 mg PO DAILY 03/13/18 Hydrocodone 7.5/APAP 325 [Kathryn 7.5/325 mg*] 1 tab PO Q6H PRN #30 tab 03/13/18 - Past Medical/Surgical History Diabetic: No -: HTN -: PAD -: Glaucoma -: Macular degeneration -: CHF, diastolic dysfunction -: CAD -: Tonsillectomy -: Lower extremity arterial bypass Psychosocial/ Personal History: She is - Family History Mother Notes: Congestive heart failure Father -: Lung disease Brother -: Heart disease Sister -: Cancer - Social History Alcohol use: No CD- Drugs: No Caffeine use: Yes Review of Systems 10-point ROS is otherwise unremarkable Physical Examination - Physical Exam General: Alert, Oriented x3, Mild distress HEENT: Atraumatic, PERRLA, Mucous membr. moist/pink, EOMI, Sclerae nonicteric Neck: Supple, 2+ carotid pulse no bruit, No LAD, Without JVD or thyroid abnormality Respiratory: Diminished, Crackles/rales, Expiratory wheezes, Other (On BiPAP) Cardiovascular: Regular rate/rhythm, Normal S1 S2 Gastrointestinal: Normal bowel sounds, No tenderness Musculoskeletal: No tenderness Integumentary: No rashes Neurological: Normal speech, Normal tone, Normal affect - Studies Laboratory Data (last 24 hrs) 02/13/19 13:30: Sodium 138, Potassium 3.7, BUN 24 H, Creatinine 1.15, Glucose 129 H 02/13/19 13:30: WBC 11.9 H, Hgb 13.4, Hct 40.3, Plt Count 178 Microbiology Data (last 24 hrs): 02/13/19 13:24 Nasopharnyx Influenza Type A Antigen Screen - Final 02/13/19 13:24 Nasopharnyx Influenza Type B Antigen Screen - Final Assessment and Plan - Problems (Diagnosis) (1) Acute respiratory failure Onset Date: 12/09/17 Current Visit: No Status: Acute Qualifiers: Respiratory failure complication: hypoxia Qualified Code(s): J96.01 - Acute respiratory failure with hypoxia (2) Peripheral arterial disease Current Visit: Yes Status: Chronic (3) CHF (congestive heart failure) Onset Date: 12/09/17 Current Visit: No Status: Acute Qualifiers: Heart failure type: diastolic Heart failure chronicity: acute on chronic Qualified Code(s): I50.33 - Acute on chronic diastolic (congestive) heart failure (4) Pneumonia Onset Date: 12/09/17 Current Visit: Yes Status: Acute Qualifiers: Pneumonia type: due to unspecified organism Lung location: upper lobe of lung (5) HTN (hypertension) Onset Date: 12/09/17 Current Visit: No Status: Chronic Qualifiers: Hypertension type: essential hypertension - Plan Admit patient to the floor with tele. BiPAP as needed. We will continue azithromycin and Rocephin. Start IV Lasix. Echo ordered, pending Repeat chest x-ray tomorrow - Advance Directives Does patient have a Living Will: No Does patient have a Durable POA for Healthcare: No Time Spent Managing Pts Care (In Minutes): 55
[2019-02-13] MEDS: IPRATROPIUM BROM 0.5MG/2.5ML NEB SCH (21:06)
[2019-02-13] MEDS: FUROSEMIDE 20 MG/ 2ML VIAL IV SCH (22:03)
[2019-02-13 22:39] VITALS: BMI 22.9
[2019-02-14] MEDS: IPRATROPIUM BROM 0.5MG/2.5ML NEB SCH ×4 (02:00→19:41)
[2019-02-14 05:28] LABS: Absolute Lymphocytes (CBC) 0.8 K/uL (0.7-4.9); Absolute Monocytes 1.2 K/uL (0.1-1.3); Absolute Neutrophil 7.8 K/uL (1.8-8.0); Basophils % 0.4 % (0-1.3); Hematocrit 36.6 % (36.0-45.0); Lymphocytes % 7.7 % (15.3-44.8); MPV 10.4 fL (7.6-11.3); Monocytes % 12.1 % (3.3-12.3); RBC Red Blood Cell Count 4.33 M/uL (3.86-4.86)
[2019-02-14 05:34] LABS: Bilirubin Total 1.5 mg/dL (0.2-1.0); Magnesium 1.8 mg/dL (1.8-2.4); Phosphorus 2.9 mg/dL (2.5-4.9); Protein, Total 6.1 g/dL (6.4-8.2)
[2019-02-14] MEDS ORDERED: MAGNESIUM SULFATE 1 gm IVPB 1 GM/100 ML BAG IV ONE (05:48)
[2019-02-14] MEDS ORDERED: POTASSIUM 25 MEQ EFFERV TAB PO ONE ×2 (05:48→13:09)
--- NOTE | 2019-02-14 08:10 | RAD REPORT ---
EXAM DESCRIPTION: Jade Single View02/14/2019 6:17 am CLINICAL HISTORY: Shortness of breath COMPARISON: February 13 FINDINGS: Mild improvement in the bilateral pulmonary opacities. Heart remains mildly enlarged
[2019-02-14] MEDS: ENOXAPARIN 40 MG/0.4 ML SQ SCH (09:07)
[2019-02-14] MEDS: AZITHROMYCIN IV 250 MG in NA CHLORIDE 0.9% 250 ML IVPB SCH (09:07)
[2019-02-14] MEDS: FUROSEMIDE 20 MG/ 2ML VIAL IV SCH ×2 (09:15→17:25)
--- NOTE | 2019-02-14 10:54 | ECHO ---
HEIGHT: 5 ft 5 in WEIGHT: 135 lb 8 oz DATE OF STUDY: 02/14/[address]: Shamar Aguero MD 2-DIMENSIONAL: YES M.MODE: YES DOPPLER: YES COLOR FLOW: YES TDS: PORTABLE: DEFINITY: BUBBLE STUDY: DIAGNOSIS: CONGESTIVE HEART FAILURE CARDIAC HISTORY: CATHERIZATION: SURGERY: PROSTHETIC VALVE: PACEMAKER: MEASUREMENTS (cm) DIASTOLIC (NORMALS) SYSTOLIC (NORMALS) IVSd 1.0 (0.6-1.2) LA Diam 3.7 (1.9-4.0) LVEF 65% LVIDd 4.4 (3.5-5.7) LVIDs 2.8 (2.0-3.5) %FS 35% LVPWd 0.9 (0.6-1.2) Ao Diam 2.8 (2.0-3.7) 2 DIMENSIONAL ASSESSMENT: RIGHT ATRIUM: NORMAL LEFT ATRIUM: NORMAL RIGHT VENTRICLE: NORMAL LEFT VENTRICLE: NORMAL TRICUSPID VALVE: NORMAL MITRAL VALVE: NORMAL PULMONIC VALVE: NORMAL AORTIC VALVE: NORMAL PERICARDIAL EFFUSION: NONE AORTIC ROOT: NORMAL LEFT VENTRICULAR WALL MOTION: NORMAL DOPPLER/COLOR FLOW: MILD MITRAL AND TRICUSPID REGURGITATION. MILD PULMONARY HYPERTENSION. ESTIMATED RIGHT VENTRICULAR SYSTOLIC PRESSURE 40 mmHg. COMMENTS: NORMAL 2-DIMENSIONAL ECHOCARDIOGRAM. MILD MITRAL AND TRICUSPID REGURGITATION. MILD PULMONARY HYPERTENSION. TECHNOLOGIST: ANA BARRIENTOS
--- NOTE | 2019-02-14 17:26 | P.PN ---
Subjective Date of Service: 02/14/19 Chief Complaint: Shortness of breath Subjective: No C/O voiced, Improving Patient seen and examined at bedside. Daughter at bedside. Chart reviewed and case discussed with nursing staff. Patient admitted for pulmonary edema and acute respiratory failure. She has now been off BiPAP overnight, breathing well on nasal cannula. Satting well. Reports improvement in breathing. Reports tingling on right lower extremity but states that this is chronic and she may have neuropathy. Denies any chest pain, headache, dizziness, shortness of breath, lower extremity edema, or G. I. or complaints. Review of Systems 10-point ROS is otherwise unremarkable Physical Examination - Vital Signs Temperature: 99.5 F Blood Pressure: 144/58 Pulse: 75 Respirations: 24 Pulse Ox (%): 94 - Physical Exam General: Alert, In no apparent distress, Oriented x3 Neck: 2+ carotid pulse no bruit, JVD not distended Respiratory: Dull, Crackles/rales, Expiratory wheezes Cardiovascular: No edema, Normal S1 S2 - Studies Microbiology Data (last 24 hrs): 02/13/19 14:36 Sputum Gram Stain - Final 02/13/19 13:24 Nasopharnyx Influenza Type A Antigen Screen - Final 02/13/19 13:24 Nasopharnyx Influenza Type B Antigen Screen - Final Medications List Reviewed: Yes Assessment And Plan - Current Problems (Diagnosis) (1) Acute respiratory failure Onset Date: 12/09/17 Current Visit: No Status: Acute Qualifiers: Respiratory failure complication: hypoxia Qualified Code(s): J96.01 - Acute respiratory failure with hypoxia (2) Peripheral arterial disease Current Visit: Yes Status: Chronic (3) CHF (congestive heart failure) Onset Date: 12/09/17 Current Visit: No Status: Acute Qualifiers: Heart failure type: diastolic Heart failure chronicity: acute on chronic Qualified Code(s): I50.33 - Acute on chronic diastolic (congestive) heart failure (4) Pneumonia Onset Date: 12/09/17 Current Visit: Yes Status: Acute Qualifiers: Pneumonia type: due to unspecified organism Lung location: upper lobe of lung (5) HTN (hypertension) Onset Date: 12/09/17 Current Visit: No Status: Chronic Qualifiers: Hypertension type: essential hypertension - Plan Acute respiratory failure Improving. Off BiPAP. We will continue BiPAP as needed. Continue azithromycin Repeat chest x-ray with mild improvement in opacities Continue breathing treatments as needed Acute on chronic diastolic (congestive) heart failure 02/14/2019: Echocardiogram with 65% ejection fraction, normal echo with mild pulmonary hypertension noted Continue IV diuresis with Lasix Strict I&Os Daily weights Pneumonia, upper lobe of lung Continue azithromycin Sputum culture pending Essential hypertension Stable. Will continue home medications and adjust as needed. Peripheral arterial disease Stable. Continue home medications DVT prophylaxis: Lovenox GI prophylaxis: None Diet: Heart healthy Disposition: Pending symptomatic improvement. Now stable, okay to transfer to the floor. Discharge Plan: Home Critical Care: Yes Time Spent Managing PTS Care (In Minutes): 55
[2019-02-14] MEDS ORDERED: POTASSIUM CL SA 10 MEQ TAB PO ONE (20:46)
[2019-02-15] MEDS: IPRATROPIUM BROM 0.5MG/2.5ML NEB SCH ×4 (01:17→20:00)
[2019-02-15 06:32] LABS: Absolute Lymphocytes (CBC) 0.6 K/uL (0.7-4.9); Basophils % 0.3 % (0-1.3); Hematocrit 38.8 % (36.0-45.0); Lymphocytes % 6.8 % (15.3-44.8); MPV 9.8 fL (7.6-11.3); Monocytes % 11.5 % (3.3-12.3)
[2019-02-15 06:50] LABS: Bilirubin Total 1.3 mg/dL (0.2-1.0); Magnesium 2.2 mg/dL (1.8-2.4); Phosphorus 3.6 mg/dL (2.5-4.9); Protein, Total 6.4 g/dL (6.4-8.2)
[2019-02-15] MEDS: FUROSEMIDE 20 MG/ 2ML VIAL IV SCH ×2 (08:56→16:51)
[2019-02-15] MEDS: ENOXAPARIN 40 MG/0.4 ML SQ SCH (08:56)
[2019-02-15] MEDS: AZITHROMYCIN IV 250 MG in NA CHLORIDE 0.9% 250 ML IVPB SCH (10:12)
[2019-02-15] MEDS ORDERED: METOPROLOL TARTRATE 5 MG/5 ML INJ IV STA (10:34)
[2019-02-15] MEDS ORDERED: METOPROLOL TARTRATE 5 MG/5 ML INJ IV ONE (10:48)
[2019-02-15 11:19] LABS: Magnesium 2.2 mg/dL (1.8-2.4); Phosphorus 3.8 mg/dL (2.5-4.9)
[2019-02-15] MEDS: METOPROLOL TAR 50 MG TAB PO SCH ×2 (14:10→21:28)
[2019-02-15] MEDS ORDERED: EYE OPTH SCH (21:00)
[2019-02-15] MEDS ORDERED: TRAVOPROST 0.004% OPTH SCH (21:00)
[2019-02-15] MEDS: PENTOXIFYLLINE ER 400 MG TAB PO SCH (21:27)
[2019-02-15] MEDS: APIXABAN 2.5 MG TABLET PO SCH (21:29)
[2019-02-15] MEDS: GABAPENTIN 300 MG CAP PO SCH (21:29)
--- NOTE | 2019-02-15 23:00 | PN ---
Date of Progress Note: 02/15/2019 Subjective: The patient is seen and examined. Chart reviewed and case discussed with RN. The patient is still having some shortness of breath with movement. Did go into atrial fibrillation with RVR when walking. The patient has been qualified for home O2. Medications: List reviewed. Code Status: Full. Physical Examination: Vital Signs: Temperature 99.5, blood pressure 146/65, respirations 18, O2 95% on 5 L via nasal cannula, pulse 82. General: Awake, alert, and oriented x3. Elderly female, in some mild distress. CV: S1, S2. Irregularly irregular. Rapid rate. Peripheral pulses present. Respiratory: Diminished breath sounds, improving. The patient is not tachypneic. No use of accessory muscles. Gastrointestinal: Abdomen is soft, nontender, and nondistended. Positive bowel sounds. No guarding or rigidity. Extremities: No clubbing, cyanosis, or edema. Neurologic: Nonfocal. Cranial nerves 2 through 12 intact grossly. Speech is normal. Laboratory Data: Sodium 140, potassium 4, chloride 103, CO2 31, BUN 28, creatinine 1, glucose 109, calcium 8.1, phosphorus 3.8, magnesium 2.2, albumin 3. WBC 9, H and H 13.1 and 38.8, platelets 185, neutrophils 78%. Blood cultures, no growth to date. Sputum cultures showing reduced quantity of luca. Influenza screen is negative. Assessment And Plan: An 88-year-old female with: 1. Acute respiratory failure, improving, now off BiPAP. Still requiring 5 L of oxygen via nasal cannula secondary to heart failure, pneumonia, improving. Chest x-ray shows improvement. Continue supplemental oxygen, unable to be weaned off. We will need to send home with O2. 2. Acute on chronic diastolic heart failure. Ejection fraction is 69%. Does have some mild pulmonary hypertension. We will continue with diuretics. Monitor I's and O's, daily weights. 3. Upper lobe pneumonia. We will continue with antibiotics. Cultures are negative to date. Essentially resolved. No cough, fever or chills. CXR personally reviewed, shows improvement. 4. Essential hypertension. We will continue with home medications, stable. 5. Atrial fibrillation with rapid ventricular response. The patient was given Lopressor. Rate has improved. We will resume metoprolol and blood thinner. The patient is on Eliquis, renally dosed. Plan: Resume home medications as appropriate. GI/DVT prophylaxis addressed. Plan, likely discharge in a.m. if continues to improve. Set up home O2. /ASAD Voice ID: [id number] Report ID: [id number] MTDD
[2019-02-16] MEDS: IPRATROPIUM BROM 0.5MG/2.5ML NEB SCH ×4 (02:00→20:00)
[2019-02-16 04:13] LABS: Absolute Neutrophil 5.2 K/uL (1.8-8.0); Basophils % 0.6 % (0-1.3); Eosinophils % 7.6 % (0-4.4); Hematocrit 37.2 % (36.0-45.0); Lymphocytes % 12.7 % (15.3-44.8); MPV 9.8 fL (7.6-11.3); Monocytes % 12.4 % (3.3-12.3); RBC Red Blood Cell Count 4.43 M/uL (3.86-4.86)
[2019-02-16 04:29] LABS: Albumin 2.9 g/dL (3.4-5.0); Bilirubin Total 1.1 mg/dL (0.2-1.0); Potassium 3.7 mmol/L (3.5-5.1); Protein, Total 6.3 g/dL (6.4-8.2)
[2019-02-16] MEDS ORDERED: POTASSIUM CL SA 10 MEQ TAB PO ONE (07:10)
[2019-02-16] MEDS: PENTOXIFYLLINE ER 400 MG TAB PO SCH ×2 (08:49→20:37)
[2019-02-16] MEDS: METOPROLOL TAR 50 MG TAB PO SCH ×2 (08:49→20:37)
[2019-02-16] MEDS: FUROSEMIDE 20 MG/ 2ML VIAL IV SCH ×2 (08:50→17:15)
[2019-02-16] MEDS: AMLODIPINE 10 MG TAB PO SCH (08:50)
[2019-02-16] MEDS: hydroCHLOROthiazide 25 MG TAB PO SCH (08:52)
[2019-02-16] MEDS: APIXABAN 2.5 MG TABLET PO SCH ×2 (08:55→20:37)
[2019-02-16] MEDS: AZITHROMYCIN IV 250 MG in NA CHLORIDE 0.9% 250 ML IVPB SCH (11:13)
[2019-02-16] MEDS ORDERED: FUROSEMIDE 20 MG TABLET PO SCH (19:00)
[2019-02-16] MEDS: GABAPENTIN 300 MG CAP PO SCH (20:37)
--- NOTE | 2019-02-16 22:27 | PN ---
Date of Progress Note: 02/16/2019 Subjective: The patient is seen and examined. Chart reviewed and case discussed with RN. The patient still requiring supplemental oxygen. Does get short of breath with exertion. No further episodes of AFib with RVR. Medications: List reviewed. Physical Examination: Vital Signs: Temperature 97.6, heart rate 73, blood pressure 164/70, respirations 18, O2 92% on 2 L via nasal cannula. General: Awake, alert, oriented x3. Elderly female, in some mild respiratory distress. CV: S1, S2. Irregularly irregular. Peripheral pulses present. Respiratory: Moving air well bilaterally. No crackles Gastrointestinal: Abdomen is soft, nontender, nondistended. Positive bowel sounds. Extremities: No clubbing, cyanosis, or edema. No calf tenderness. Neuro: Cranial nerves 2 through 12 intact grossly. No focal neurological deficits. Speech is normal. Laboratory Data: WBC 7.7, H and H 12.7 and 37.2, platelets 207. Sodium 144, potassium 3.7, chloride 103, CO2 32, BUN 34, creatinine 0.96, glucose 96, calcium 8.2, albumin 2.9. Blood cultures, no growth to date. Sputum culture negative. Assessment And Plan: An 88-year-old female with: 1. Acute respiratory failure, improving, now off BiPAP. The patient now weaned down to 2 L of supplemental oxygen. The patient's room air saturations are 88%. The patient will need home O2 secondary to congestive heart failure. 2. Chronic diastolic heart failure, ejection fraction 69%. The patient is diuresed well, currently back to baseline and compensated. Continue diuretics. We will switch over to p.o. Lasix. Monitor I's and O's and daily weights. 3. Pneumonia. Continue antibiotics. Culture is negative to date. Chest x- ray will be repeated in a.m. No further cough or sputum production; resolved. 4. Essential hypertension. We will continue with home medications, stable. 5. Atrial fibrillation now with controlled ventricular rate. Continue metoprolol. The patient is on Eliquis, renally dosed. Gastrointestinal and deep venous thrombosis prophylaxis addressed. Plan: The patient needs to be set up with home O2 prior to discharge. /MODGilles Voice ID: [id number] Report ID: [id number] MTDD
[2019-02-17] MEDS: IPRATROPIUM BROM 0.5MG/2.5ML NEB SCH ×2 (02:00→07:40)
--- NOTE | 2019-02-17 07:24 | RAD REPORT ---
EXAM DESCRIPTION: RAD - Chest Pa And Lat (2 Views) - 02/17/2019 6:52 am CLINICAL HISTORY: CHF, pneumonia COMPARISON: February 14 TECHNIQUE: PA and lateral views of the chest were obtained. FINDINGS: The lungs are fibrotic as a baseline. Left pleural effusion has resolved. Vasculature has diminished in prominence. Interstitial edema has also diminished. Granulomas again noted. No new or p rogressive finding. Heart size is normal. No pneumothorax. No acute bony finding noted. No aortic abnormality. IMPRESSION: CHF/volume overload findings have resolved. Patient is at or near baseline fibrotic emily jono. No focal pneumonia identified.
[2019-02-17] MEDS: hydroCHLOROthiazide 25 MG TAB PO SCH (08:20)
[2019-02-17] MEDS: APIXABAN 2.5 MG TABLET PO SCH (08:20)
[2019-02-17] MEDS: METOPROLOL TAR 50 MG TAB PO SCH (08:20)
[2019-02-17] MEDS: AMLODIPINE 10 MG TAB PO SCH (08:21)
[2019-02-17] MEDS: PENTOXIFYLLINE ER 400 MG TAB PO SCH (08:21)
[2019-02-17] MEDS ORDERED: FUROSEMIDE 20 MG TABLET PO SCH (09:00)
[2019-02-17] MEDS ORDERED: AZITHROMYCIN 250 MG TAB PO SCH (09:00)
[2019-02-17 09:33] VITALS: O2SAT 100
[2019-02-17 12:45] VITALS: BP 117/57; TEMP 97.5
--- NOTE | 2019-02-18 06:57 | DS ---
Date of Discharge: 02/17/2019 Consultants: None. Admitting Diagnoses: 1.Acute respiratory failure with hypoxia. 2.Peripheral arterial disease. 3.Congestive heart failure, diastolic, acute on chronic. 4.Pneumonia. 5.Essential hypertension. Discharge Diagnoses: 1.Acute respiratory failure with hypoxia, resolved. 2.Chronic diastolic heart failure, ejection fraction 69%. 3.Pneumonia, resolved. 4.Essential hypertension, stable. 5.Atrial fibrillation with controlled ventricular rate, on Eliquis. Hospital Course: The patient is an 88-year-old female with past medical history of congestive heart failure, hypertension, CHF, comes in with shortness of breath. The patient was saturating 78% to 79% on room air, did not improve with nasal cannula, was started on BiPAP and improved to 92% and was de saturating once she was taken off BiPAP into the 70s. The patient was eventually able to be weaned o ff BiPAP into nasal cannula. Her white blood cell count was 11.9. She did have some focal opacifica tion in the left base that was suspicious for pneumonia as well as some CHF, volume overload pattern on imaging studies. The patient was started on IV antibiotics and had improvement of her condition. Her blood cultures remained negative. Influenza screen was also negative. Her sputum culture showe d reduced quantity of normal luca. White count normalized. She was afebrile, did not have any sign s of sepsis. The patient did have some hypokalemia which was replaced. The patient was difficult to wean off oxygen, and she was requiring home O2. The patient was then set up with home O2. Her repe at chest x-ray showed resolution of the volume overload findings. Did show baseline fibrosis, and th ere was no focal pneumonia identified. The patient was then discharged home in a stable condition. Activity: As tolerated. Medications: As per medication reconciliation list. Finish off course of azithromycin for 3 more da ys. Followup: Follow up with primary care physician in 2-3 days. Return to ER for worsening condition. Diet: Low-sodium, fluid-restricted diet. Activity: Fall precautions. Physical Examination: General: Awake, alert, oriented x3, elderly female. CV: S1, S2. Irregularly irregular. Peripheral pulses present. Respiratory: Moving air well bilaterally. No wheezing. Gastrointestinal: Abdomen is soft, nontender, nondistended. Positive bowel sounds. Extremities: No clubbing, cyanosis, or edema. Neurologic: Nonfocal. Total time spent discharging the patient was 34 minutes. /ASAD Voice ID: [id number] Report ID: [id number]
--- NOTE | 2019-02-22 11:09 | EKG ---
Test Date: 2019-02-15 Test Time: 10:53:00 [employer] Operator: RISA MEASUREMENT RESULTS: Intervals: Rate: 107 TX: QRSD: 86 QT: 334 QTc: 445 Staples: P: TX: QRS: 81 T: -10 INTERPRETIVE STATEMENTS: Atrial flutter with variable AV block Non specific T wave abnormality Abnormal ECG Compared to ECG 03/12/2018 15:26:28 Right-axis deviation no longer present Electronically Signed On 02-15-19 17:00:49 CDT by Palomo Mercado
== END 2019-02-17 13:37 | disposition home or self-care (01) | DRG 189 ==
LOC: ER 13:04 → ERHOLD 16:03 → 3RD-ICU 21:12 → 4TH 02-14 18:10
PROVIDERS: ADMIT Family Medicine; ATTEND Family Medicine
PROC: 5A09457 Assistance with Respiratory Ventilation, 24-96 Consecutive Hours, Continuous Positive Airway Pressure (ICD-10-PCS; principal; 2019-02-13)
DX: J96.01 Acute respiratory failure with hypoxia (principal); I50.33 Acute on chronic diastolic (congestive) heart failure; J18.9 Pneumonia, unspecified organism; I11.0 Hypertensive heart disease with heart failure; R09.02 Hypoxemia; I25.10 Atherosclerotic heart disease of native coronary artery without angina pectoris; I73.9 Peripheral vascular disease, unspecified; I48.2 Chronic atrial fibrillation
CPT/HCPCS: 36415; 71045; 71046; 80048; 80053; 83605; 83735; 83880; 84100; 84132; 84145; 85025; 87040; 87070; 87205; 87804; 93005; 93306; 94640; 94660; 94760; 96361; 96365; 96375; 97110; 97116; 97162; 97530; 99285; J0456; J0696; J1650; J1940; J3475